=== PATIENT | female | born 1970 | race Caucasian/White ===

== ENCOUNTER 2023-09-20 16:40 | Emergency (ER) | payer MEDICAID, SELFPAY ==
[2023-09-20 16:52] VITALS: BP 138/76; PULSE 81; RESP 20; TEMP 36.7; O2SAT 99; BMI 28.7
--- NOTE | 2023-09-20 17:13 | ED.URI1 ---
HPI - URI/Sore Throat General Chief Complaint: Upper Respiratory Infection Stated Complaint: congestion Time Seen by Provider: 09/20/23 17:05 Source: patient Limitations: no limitations History of Present Illness HPI Narrative: patient is a 53-year-old female presents to the Emergency Room with concerns of right ear pain. Patient notes discomfort in her right ear and right sinus over the past twenty-four hours. Patient states she has been sick for two weeks with cough and congestion. Denies fever. States multiple family members with upper respiratory symptoms over the past few weeks. She denies any vomiting or diarrhea. Notes slight eyelid irritation and swelling as well. She denies any eye pain. 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 She did not take any Tylenol or Motrin prior to arrival but did wear cotton in her right ear last night to sleep. MD elicited complaint: Reports cough; Denies fever Onset (ago): week(s) Consistency: Reports constant Severity: moderate Able to tolerate fluids by mouth: Yes Context: Reports sick contacts Associated symptoms: Reports nasal congestion; Denies fever Related Data Previous Rx's Medication Instructions Recorded amoxicillin 875 mg tablet 875 mg PO BID 10 days #20 tabs 09/20/23 ibuprofen 600 mg tablet 600 mg PO TID PRN pain #30 tabs 09/20/23 Allergies Allergy/AdvReac Type Severity Reaction Status Date / Time No Known Drug Allergies Allergy Verified 09/20/23 16:55 Review of Systems ROS Constitutional Denies: fever or chills Eyes Denies: change in vision Ears, nose, mouth, and throat Reports: ear pain and nasal congestion; Denies: throat pain or neck pain Cardiovascular Denies: chest pain or palpitations Respiratory Reports: cough; Denies: shortness of breath Gastrointestinal Denies: abdominal pain or nausea Genitourinary Reports: other (denies chance of ); Denies: painful urination Musculoskeletal Denies: back pain, neck pain or muscle weakness Integumentary/Breast Denies: rash Neurological Denies: headache Psychiatric Denies: anxiety Allergic/Immunologic Denies: hives PFSH PFSH Social History Smoking status: Current every day smoker Exam Narrative Exam Narrative: Nurses notes and vital signs reviewed and patient is not hypoxic. General: The patient appears well and in no apparent distress. Patient is resting comfortably on cart. Skin: Warm, dry, no pallor noted. Head: Normocephalic, atraumatic Neck: Supple, trachea mid-line, no tenderness, no lymphadenopathy Eye: Pupils are equal, round and reactive to light, EOMI, no erythema trace swelling of upper and lower lids. Ears, Nose, Mouth, and Throat: mild cerumen left canal, tympanic membrane unremarkable, right tympanic membrane notably injected, bulging with middle ear effusion. Positive right sinus tenderness. oral mucosa is moist, no posterior oropharynx erythema or hypertrophy, uvula is mid-line. no dentition in the upper palate. Cardiovascular: Regular Rate and Rhythm Respiratory: Patient is in no distress, no accessory muscle use, lungs are clear to auscultation, no wheezing, rales or rhonchi. Chest Wall: no tenderness Neurological: A&O x4 Psychiatric: Cooperative Constitutional Vital Signs, click to edit/add: Last Vital Signs Temp 98.1 F 09/20/23 16:52 Pulse 81 09/20/23 16:52 Resp 20 09/20/23 16:52 BP 138/76 09/20/23 16:52 Pulse Ox 99 09/20/23 16:52 O2 Del Method Room Air 09/20/23 16:52 Course Vital Signs Vital signs: Vital Signs Temperature 98.1 F 09/20/23 16:52 Pulse Rate 81 09/20/23 16:52 Respiratory Rate 20 09/20/23 16:52 Blood Pressure 138/76 09/20/23 16:52 Pulse Oximetry 99 09/20/23 16:52 Oxygen Delivery Method Room Air 09/20/23 16:52 Temperature 98.1 F 09/20/23 16:52 Pulse Rate 81 09/20/23 16:52 Respiratory Rate 20 09/20/23 16:52 Blood Pressure 138/76 09/20/23 16:52 Pulse Oximetry 99 09/20/23 16:52 Oxygen Delivery Method Room Air 09/20/23 16:52 MDM - URI/Sore Throat MDM Narrative Medical decision making narrative: patient smokes, encouraged not to do so. Progressive upper respiratory infection symptoms over the past two weeks. She declines the need for bitter influenza screening. Patient she is concerned his right maxillary sinus pain and right ear pain. Patient feels the pain is radiating to her face from her ear. She is agreeable to Motrin here for pain, we will place her on amoxicillin as she has not been on antibiotics in recent months. recommend [id number] antihistamine such as Zyrtec or Claritin with minimal swelling of her eyelids, no conjunctival injection. Cool compresses encouraged. The patient is to followup with primary care physician in next 2-3 days or to return to the emergency department should any of the signs or symptoms worsen or new symptoms develop. Patient had questions answered. The patient agrees with the following Diagnosis and Treatment plan and the patient will be discharged home. Discharge Plan Discharge Chief Complaint: Upper Respiratory Infection Clinical Impression: Acute otitis media, right, Upper respiratory infection Patient Disposition: Home, Self-Care Time of Disposition Decision: 17:14 Condition: Good Prescriptions / Home Meds: New amoxicillin 875 mg tablet 875 mg PO BID 10 Days Qty: 20 0RF ibuprofen 600 mg tablet 600 mg PO TID PRN (Reason: pain) Qty: 30 0RF Instructions: Ear Infection (ED) Additional Instructions: Recommend antihistamine ALLERGY tablet such as Zyrtec or Claritin Cool compress to eyes. Stand Alone Forms: Portal Instructions Referrals: SALAS VALDEZ [Primary Care Provider] - 1 week
== END 2023-09-20 17:20 | disposition home or self-care (01) ==
PROVIDERS: Emergency Provider Emergency Medicine; PCP Nurse Practitioner Family
DX: H66.91 Otitis media, unspecified, right ear (principal); J06.9 Acute upper respiratory infection, unspecified; F17.210 Nicotine dependence, cigarettes, uncomplicated
CPT/HCPCS: 99283

== ENCOUNTER 2023-10-29 17:45 | Emergency (ER) | payer MEDICAID, SELFPAY ==
[2023-10-29 17:53] VITALS: PULSE 93; RESP 16; TEMP 37.2; O2SAT 99; BMI 28.7
--- NOTE | 2023-10-29 17:58 | ED.FEMALEGU1 ---
HPI - Female Genitourinary General Chief complaint: Urogenital-Female Stated complaint: POSS BLADDER INFECTION/BLOOD IN URINE Time Seen by Provider: 10/29/23 17:49 Source: patient Mode of arrival: walk-in Limitations: no limitations History of Present Illness HPI Narrative: 53-year-old female presents for frequency and pain on urination. She believes she has a UTI. It started yesterday and was perhaps slightly worse today. No fever or vomiting. Related Data Home Medications Medication Instructions Recorded Confirmed buspirone 5 mg tablet 5 mg PO BID 10/29/23 10/29/23 dextroamphetamine-amphetamine 10 10 mg PO DAILY 10/29/23 10/29/23 mg tablet levothyroxine 125 mcg tablet 125 mcg PO DAILY 10/29/23 10/29/23 paroxetine HCl 30 mg tablet 30 mg PO DAILY 10/29/23 10/29/23 Previous Rx's Medication Instructions Recorded cephalexin 500 mg capsule 500 mg PO TID 7 days #21 caps 10/29/23 Allergies Allergy/AdvReac Type Severity Reaction Status Date / Time No Known Drug Allergies Allergy Verified 09/20/23 16:55 Review of Systems ROS Narrative A ten point review of systems is negative except as noted above. PFSH PFSH Social History Smoking status: Never smoker Exam Narrative Exam Narrative: Nurses note and vital signs reviewed and patient is not hypoxic. General: The patient appears well and in no apparent distress. Patient is resting comfortably on cart. Skin: Warm, dry, no pallor noted. There is no rash noted. Head: Normocephalic, atraumatic Eye: Normal conjunctiva, no drainage Ears, Nose, Mouth, and Throat: oral mucosa is moist. Nares patent. Cardiovascular: Regular Rate and Rhythm Respiratory: Patient is in no distress, no accessory muscle use, lungs are clear to auscultation, no wheezing, rales or rhonchi Back: non-tender, no CVA tenderness bilaterally to percussion. GI: Soft and nontender Musculoskeletal: The patient has no evidence of calf tenderness, no pitting edema, symmetrical pulses noted bilaterally Neurological: A&O, normal speech Psychiatric: Cooperative Constitutional Vital Signs, click to edit/add: Last Vital Signs Temp 99.0 F 10/29/23 17:53 Pulse 93 H 10/29/23 17:53 Resp 16 10/29/23 17:53 Pulse Ox 99 02/22/24 17:53 O2 Del Method Room Air 10/29/23 17:53 Course Vital Signs Vital signs: Vital Signs Temperature 99.0 F 10/29/23 17:53 Pulse Rate 93 H 10/29/23 17:53 Respiratory Rate 16 10/29/23 17:53 Pulse Oximetry 99 10/29/23 17:53 Oxygen Delivery Method Room Air 10/29/23 17:53 Temperature 99.0 F 10/29/23 17:53 Pulse Rate 93 H 10/29/23 17:53 Respiratory Rate 16 10/29/23 17:53 Pulse Oximetry 99 10/29/23 17:53 Oxygen Delivery Method Room Air 10/29/23 17:53 MDM - Female Genitourinary MDM Narrative Medical decision making narrative: UTI is identified and she is prescribed Keflex. Treatment diagnosis and follow-up were discussed with the patient. I have no clinical suspicion of pyelonephritis Differential Diagnosis Differential diagnosis: Likely urinary tract infection and other (Pyelonephritis) Lab Data Attestation: I reviewed the patient's lab results. Labs: Lab Results 10/29/23 Range/Units 18:30 Urine Color Lt. yellow (YELLOW) Urine Clarity Clear (CLEAR) Urine pH 6.0 (5.0-9.0) Ur Specific [place] <=1.005 A (1.005-1.025) Urine Protein Negative (NEG/TRACE) mg/dL Urine Glucose (UA) Negative (NEGATIVE) mg/dL Urine Ketones Negative (NEGATIVE) mg/dL Urine Occult Blood Large A (NEGATIVE) Urine Nitrite Positive A (NEGATIVE) Urine Bilirubin Negative (NEGATIVE) Urine Urobilinogen 0.2 (0.2-1.0) EU/dL Ur Leukocyte Esterase Moderate A (NEGATIVE) Urine RBC 2-5 A (0-2) #/HPF Urine WBC 20-50 A (NONE SEEN) #/HPF Ur Squamous Epith Cells Few A (NONE/RARE) #/LPF Urine Crystals None seen (None Seen) #/HPF Urine Bacteria Moderate A (NONE SEEN) #/HPF Urine Casts None seen (NONE SEEN) #/LPF Urine Mucus None seen (NONE SEEN) Discharge Plan Discharge Chief Complaint: Urogenital-Female Clinical Impression: Urinary tract infection Patient Disposition: Home, Self-Care Time of Disposition Decision: 18:54 Condition: Good Mode of Transportation: Private Vehicle Prescriptions / Home Meds: New cephalexin 500 mg capsule 500 mg PO TID 7 Days Qty: 21 0RF No Action buspirone 5 mg tablet 5 mg PO BID levothyroxine 125 mcg tablet 125 mcg PO DAILY paroxetine HCl 30 mg tablet 30 mg PO DAILY dextroamphetamine-amphetamine 10 mg tablet 10 mg PO DAILY Instructions: Urinary Tract Infection in Women (ED) Stand Alone Forms: Portal Instructions Referrals: SALAS VALDEZ [Primary Care Provider] - 1 week
--- OUTSIDE RECORDS SUMMARY | 2023-10-29 18:24 | XMS_ITS | CCD ---
Author Name Unknown Address [address] [place] [address] Organization [facility] Care Team Providers Care Weaving Supervisor Name Role Phone Adriana Carroll Unavailable [phone] Donya Brown Unavailable MARKER ., DR [place] Admitting Unavailable MARKER ., DR [place] Attending Unavailable ADRIANA CARROLL Primary Care Unavailab emil REESE ., MARISSA MIJARES Consulting Unavailabl e MARKER ., DR [place] Consulting Unavailable JA ENGLISH Consulting Unavailable EDUARDO CAMACHO Attending Unavailable CATRINA WOODARD Referring Unavailable CATRINA WOODARD Primary Care Unavailable Medications Current Medications Medication Drug Class(es) Dates Sig (Normalized) Sig (Original) amphetamine aspartate 2.5 mg / amphetamine sulfate 2.5 mg / dextroamphetamine saccharate 2.5 mg / dextroamphetamine sulfate 2.5 mg oral tablet (12 sources) Central Nervous System Stimulant Adderall 10 MG 1 tablet in the morning Orally Once a the morning, once in the evening Active busPIRone hydrochloride 5 mg oral tablet (1 source) Start: 08-13-2023 take 1 tablet by mouth every twelve hours busPIRone HCl 5 MG 1 tablet Orally Twice a day for 30 days Aug, Active dexamethasone 1 mg/ml / tobramycin 3 mg/ml ophthalmic suspension (2 sources) Aminoglycoside Antibacterial, Corticosteroid Start: 12-30-2021 take 1 drop(s) into the eye(s) three times daily TobraDex 0.3-0.1 % 1 drop into affected eye Ophthalmic Three times a day for 5 days Dec, Active levothyroxine sodium 0.125 mg oral tablet (12 sources) l-Thyroxine take 1 tablet by mouth every twenty-four hours Levothyroxine Sodium 125 MCG 1 tablet Orally Once a day for 90 days Active take 1 tablet by genny th every twenty-four hours Levothyroxine Sodium 125 MCG 1 tablet Orally Once a day for 90 days Active methylPREDNISolone 4 mg oral tablet (5 sources) Corticosteroid Start: 12-30-2021 methylPREDNISo lone 4 MG as directed Orally Once a day for 6 days Dec, Active Start: 03-18-2018 Medrol (Alan) 4 mg as directed Orally as directed for 6 days Mar, Not-Taking PARoxetine (15 sources) Serotonin Reuptake Inhibitor take 1 tablet by mouth once daily PARoxetine HCl 30 MG TAKE ONE TABLET BY MOUTH DAILY for 30 Not-Taking take 1 tablet by genny th once daily in the morning PARoxetine HCl 30 TAKE ONE TABLET BY GENNY TH EVERY MORNING for 30 Active tiZANidine 2 mg oral tablet (1 source) Central alpha-2 Adrenergic Agonist Start: 08-13-2023 take 1 tablet by mouth every eight hours tiZANidine HCl 2 MG 1 tablet as needed Orally Three times a day for 10 days Aug, Active Completed/Discontinued Medications Medication Drug Class(es) Dates Sig (Normalized) Sig (Original) [id number] 200 actuat albuterol 0.09 mg/actuat metered dose inhaler (3 sources) beta2-Adrenergic Agonist Start: 08-28-2015 take 2 puff(s) by inhalation every four hours as needed Albuterol Sulfate HFA 108 (90 Base) MCG/ACT 2 puffs as needed Inhalation every 4 hrs for 30 day(s) PRN Aug, Not-Taking atorvastatin 10 mg oral tablet (6 sources) HMG-CoA Reductase Inhibitor Start: 04-10-2017 take 1 tablet by mouth every twenty-four hours Atorvastatin Calcium 10 MG 1 tablet Orally Once a day for 30 day(s) January, Not-Taking cyclobenzaprine hydrochloride 10 mg oral tablet (3 sources) Muscle Relaxant Start: 03-18-2018 take 1 tablet by mouth twice daily as needed Flexeril 10mg 1 tab prn Oral bid for 20 day(s) Mar, Not-Taking ergocalciferol 1.25 mg oral capsule (3 sources) Provitamin D2 Compound Start: 02-02-2019 take 1 capsule by mouth every week Ergocalciferol 63881 UNIT 1 capsule Orally once a week for 30 day(s) January, Not-Taking 120 actuat fluticasone propionate 0.044 mg/actuat metered dose inhaler (3 sources) Corticosteroid Start: 08-28-2015 take 2 puff(s) by inhalation twice daily Flovent HFA 44 MCG/ACT 2 puffs Inhalation Twice a day for 1 month Aug, Not-Taking liothyronine sodium 0.005 mg oral tablet (3 sources) l-Triiodothyronine Start: 12-18-2014 take 1 tablet by mouth every twelve hours Cytomel 5 MCG 1 tablet on an empty stomach Orally twice a day for 30 day(s) Dec, Not-Taking Multi Vitamin/Minerals (12 sources) Multi Vitamin/Minerals Orally Not-Taking/PRN Multi Vitamin/Mi nerals Orally Active Naproxen (3 sources) Nonsteroidal Anti-inflammatory Drug take 1 tablet by mouth every twelve hours at mealtime as needed Naprosyn 500 TAKE ONE TABLET BY MOUTH WITH FOOD OR MILK EVERY 12 HOURS NEEDED AFTER DONE WITH MEDROL.DOSE ALAN for 30 Not-Taking Vitamin B Complex (12 sources) Vitamin B Comple x Orally Not-Taking/PRN Vitamin B Comple x Orally Active Vitamin D 1000 UNIT (12 sources) take 1 tablet by genny th once daily as needed Vitamin D 1000 UNIT 1 tablet Orally Once a day Not-Taking/PRN take 1 tablet by mouth once saulo y Vitamin D 1000 UNIT 1 tablet Orally Once a day Active Problems Active Problems Problem Classification Problem Date Documented Date Episodic/Chronic Anxiety disorders (2 sources) Generalized anxiety disorder; Translations: [Generalized anxiety disorder] Onset: 01-20-2022 Chronic Attention-deficit, conduct, and disruptive behavior disorders (1 source) Attention-deficit hyperactivity disorder, combined type; Translations: [Attention-deficit hyperactivity disorder, combined type] Onset: 01-20-2022 Chronic Conduction disorders (18 sources) Right bundle branch block; Translations: [Unspecified right bundle-branch block] Onset: 11-18-2021 Resolved: 11-19-2021 Chronic Disorders of lipid metabolism (12 sources) Hypercholesterolemia ; Translations: [Pure hypercholesterolemia , unspecified] Chronic E Codes: Struck by; against (1 source) Walked into wall, initial encounter; Translations: [WALKED INTO WALL INITIAL ENCOUNTER] Onset: 03-31-2023 Episodic Nutritional deficiencies (13 sources) Vitamin D deficiency; Translations: [Vitamin D deficiency, unspecified] Onset: 06-18-2021 Resolved: 06-18-2021 Chronic Other connective tissue disease (3 sources) Pain in left hand; Translations: [PAIN IN LEFT HAND] Onset: 12-03-2022 Episodic Other nervous system disorders (12 sources) Poor concentration; Translations: [Attention and concentration deficit] Chronic Other nervous system disorders (1 source) Chronic pain; Translations: [Other chronic pain] Chronic Other nutritional; endocrine; and metabolic disorders (12 sources) Overweight; Translations: [Overweight] Episodic Other upper respiratory disease (3 sources) Seasonal allergic rhinitis; Translations: [Other seasonal allergic rhinitis] Chronic Other upper respiratory disease (1 source) Other seasonal allergic rhinitis Onset: 12-30-2021 Resolved: 12-30-2021 Chronic Spondylosis; intervertebral disc disorders; other back problems (1 source) Chronic low back pain; Translations: [Lumbago with sciatica, left side] Episodic Substance-related disorders (14 sources) Smoker; Translations: [Nicotine dependence, unspecified, uncomplicated] Onset: 06-18-2021 Resolved: 06-18-2021 Chronic Superficial injury; contusion (1 source) Contusion of left hand, initial encounter; Translations: [CONTUSION LEFT HAND INITIAL ENC] Onset: 12-05-2022 Episodic Thyroid disorders (20 sources) Sarah thyroiditis; Translations: [Autoimmune thyroiditis] Onset: 06-18-2021 Resolved: 06-18-2021 Chronic Past or Other Problems Problem Classification Problem Date Documented Date Episodic/Chronic Acute posthemorrhagic anemia (1 source) Acute posthemorrhagic anemia; Translations: [Anemia due to acute blood loss D62] Onset: 1 Resolved: 1 Episodic Inflammation; infection of eye (except that caused by tuberculosis or sexually transmitteddisease) (1 source) Unspecified acute conjunctivitis, bilateral Onset: 2 Resolved: 2 Episodic Other screening for suspected conditions (not mental disorders or infectious disease) (2 sources) Encounter for screening for lipoid disorders; Translations: [Abnormal electrocardiogram [ECG] [EKG]] Onset: 1 Resolved: 2 Episodic Results Test Name Value Interpretation Reference Range Facility XR HAND LT MIN 3Von 12-05-19 23 XR HAND LT MIN 3V XR HAND LT MIN 3V: HISTORY: Pain. COMPARISON: None available. TECHNIQUE: 3 radiographic view(s) obtained. FINDINGS: BONES/JOINT SPACES: There is no acute fracture or dislocation. Joint spaces appear normal. There is mild ulnar minus variance. SOFT TISSUES: Normal. IMPRESSION: 1. No acute osseous abnormality. 2. Ulnar minus variance. Electronically authenticated by: JA ENGLISH Date: 2022-12-03 22:28 Normal [facility] Provider Orderson 11-20-2021 Provider Orders [id number] [email or web address] 10-24-2021 Legal Documents [id number] [facility] Coding Summaryon 09-25-2021 Coding Summary HTMLBase 64 EzqsmaiwMVv1hAk+PGhl YWQ+DM4WYAQbJ50ihHRh uJ2PA6fRLH8IVKBFWHKV NF6SOI0irXV2SBjjY4Fa biAv RinedHXsNR89SOu6TUO4 sOcsNPqdtA8zmHWrB5i8 OyBzGF13hT73JLrcIDKe FwS4YfXltlyxmYZo P7afLbIurLVbCyy+PHRh YmxlIHdpZHRoPScxMDAl OmPlnFpdBO6mJv0aAPJf LWNvbGxhcHNlOiBj o9odENKlGCiiNT4flGol E5XanOV9KAFga1v4Ic16 dHI+NQIrSMJ2uEfbNLyh e215DoMpl9vyKLV1 oBZcCMfsOBF3L73wh8Y1 DQPbUERuXZC1lOZ1iT7l xEknmwznZ8MfiQGkQwZ4 BVN9mXMyqT4uzXzk igrkbR5iRnm+R53CSJ8I ROQDWM2JRip6O6VsRvnm dHI+MW34SBYpUX07rXMn bGOct9sjuPx9UcQj FPAxELU4cWqrNGwfg1Wp SPAhC67adKSmm5B7DGQf aFpogMQjZtXukLT0gA8l EGcpwxfzn5hkmcol Ooqsu7ckxu97pI78A47o UCgrCKDeXYP5NIQwIRRs uYpeqm5usX3iJx2+IDxj u4qei3xdmAk0GrZw MDMotmEeyDcgHOD7g3Nn Dq01I2SwhDqwc1XpLdv2 fj61sNOlm1M8qUO5NEng XRTxnX2lJYmsKkD8 PYBrBbSlqA27bULkUMse Rt3rlElwiAqcGQ8gELCb htglRXHwnB0uEENglDJf mJiyGM2qMPDcxkhu n606QhUyUID0FUDsgMQw C5UcwP1tWuQtWKUrEXIo P3YdgJNsMXhjI636NEwf JlM0HTNxphHqK7Ec RSYymIbvBwH0w2H8Pq7H t0CufndbOWQ8XEazMEWg GxA5ZrNjXwR1O8UhNez0 BKOakNkaEE5jJ7Dy FWVmmcuoxjowlOW5XEMq SDGtuY88xJYkVRrfXx2w v2N6t162APJkGUJtxL62 Oo1hsAqtRDPgqYPN mF4vmjvsw8kcusjeJtSe HXWmWCg7YYc3FJRapDdk CqGvRIT6SrY7KPG7rZWr wO7gcKenqhzyiD3b Oyc+O62trF1iXLV7MIV4 kavjKUVhetHtRQ81RV87 A1SpQvkwjLIynLK+PGRp qbQqeVvbGZ8hLkZv b6oev6QaRFzhF9InRIZh AZwnGko9SDYhQFZ7zEO8 hT3hIUOwPCwzf9U5uCN2 S6DjffNjhy6rn0ya AHOqJDnkN87vcVZcy1F4 SVXmgNZ1CCFgyCccZnLj pI36Umm+ZHWrvJgma5Op Xklpe7nrs6bmpPb5 IjMwJSIgdmFsaWduPSJ0 w2BaMw28F76oNZwoGVVj IYRxUVThXWSfjZilpd7p tD4wIg9+PGNvbCB3 vML9jR3nCNLpVdC0LCoe Z241XoQzwUTnXkwwp8lu b4uuzQq5PbHlXPJqlcHq wRcbFBK2q9GrHb80 N24wGNlaZJXvRCCqRETk ZUEelRqjmk1rdW8yKf8+ NI4ly3jimc20bW46zIC+ YHFuSAC0yJenSGyj IFZasC8gYNqkOzO4BWIk PbWfiO60uAYyXPocAd8s jImycBqxFX4kBNGmnjdb f555KxQld6yoYZQr xICpLFcaHOF3K09dc9W4 WLIxGLEgOJF6aCJ9yP4l bGlnbjogbGVmdDsgdmVy wXjkOUjuYAzvI700 IHRvcDsnPlBhdGllbnQg BlXuYJg4E4YwMht2JOTp sKplCQ6pdCCwQOneNh7l iPwdbYdxCO6bSBFc xhago166PxQjg8eaOXXw tACyACubSNP4N49dc6I1 LTVkHLTlYPE7tPW2iS8c bGlnbjogbGVmdDsg bjRkfRlbTQolBJxgL293 IHRvcDsnPkJpcnRoIERh nPZ3LT77PY92tHSjx9A3 kIB2R3YlXZMwykus rvnynKJ2TDSjTRWvfG30 Ym3geNftUe6cFMUaIQR8 BORhhNPmF6NkaW8yMvOs CLFsEXPnU2JdsGOx NBxzB726KAwvOmM6ZTHq vzGxI7MbARStuZdoEzL7 l5U8Dj9QC5K0OH70IS38 jBTsh4U8dDB1J6Jv ODUmwvtoblswkCT0HWBe HOCcsC51Jq3auJdfUp3i HPHaRWA6IZLxsQHpI9Jh fX6wFfIlYCAzVXSx P7EbmYEzGVkkY415ORhn RbN0HTWacjJwF9FmZRBm jKtxWrF4x7B4Hn0SJZi1 CL59LH90lMNta8F9 tFE5G0RmRBRrpkifledm jGT0PMEoUJGzdK63Kb0c cTiaTo6nSVBnVWG6IHLk xXFhX8QzcK6rOkOv NFVdTLKuE6WooKDlMKgt J335BGmxSxY8BMOwlnQd Y0ItZWFwvNggAxM8f2Q4 Hu0IUSQyZA04JNS4 hEM4CE55KC40N9EvDymq dGFibGU+PHRhYmxlIHdp ZHRoPScxMDAlJyBzdHls OL9jIu9qFDYaQOVw lNkkyCUdOtKyw1osEYSh KSccAU2jnTgzU0AoiVV1 NSByl8s6Kp85Z79uG1Jl dXA+QGCkpIW5aCZ3 aZ1bAtPcPiF2WYsbF744 WvAgoNTeYsjor5qlk0ep rDz5UfI4IUHfirXxoPni LCH4r8OoGb05M54c IHdpZHRoPSIxNSUiIHZh lSnjgq4evM4vTo4+PGNv sFV4dZN7fY1xWgYcXeG3 IYgeQ151KlGneOTj Jlonf3lrk7cnmEz6OpNb ZFRdrpFpcVelYZF6n0Km Yb61G9WbwEnpj4JpPcu3 cs64rDMff7Q4uZE9 E3SuJAOhyzwfsQKofIkm KY7bVZKthwxqBGFexE4t WLWdS0t6LiViDwU2TQak B6SatlR6OFCdhUWx LGhpXDN2G72fb3M4PGGw BFNwFDN9lJX7mS0tfAda bjogbGVmdDsgdmVydGlj WLoiQYebX822CCNk qJweIDTplQ8hVLJwhHMp sEmlZT8kHFQqpyvwDlfZ WgOlTT1HCclRGsBYOXa7 O5ClNas8LLEjrZaw WB3lmRTfNJfeLx8zdJud mHcxIT8mTDCoijnwDPYt uQ2lXFWsfNEzmArlRQ4v SIVimnmpi918BhSd JDS8AGPhsWVoP4XzxZ7t VfXuFYCzLOQuG8OtrCKy XSgvR761QTcfIdP6PRJp epMjB4WzLQNkdZyx YmZ7v3T2Tb9vAi4iKe5o UPqmKH33TM25oRPaw9A3 tWZ7O6GiHZTiiswybbog pJS3WHRuOLNoiI89 tLBsYCtwBm1fp7K4t225 FBPnJMLuwY38As1niSmt VYUatGQEmI0xcykyd3nu cjogIzAwMDAwMDt0 YYk0KFKgyLeuFtQnMXS1 FhI1BIQ0kVVjlP6emFms lelmyO2xMtl+NDkgWWVh eaH9C0CeLlp5IANz bMpqIG2mvCTjCQuaDf8q uZbcvIysFI4rJWPepaez QWRbcS3dNSZpiWKnyUem EV5pJBAtikwdo549 EiEnGUM3IGYpcICdQ7Fx xZ6wGbXcVQSdRCDhX2Dm cSQmUNhqV530ZGljWuQ1 GTOjcmFgO7VmLQIm sAdrKyI6r9G7Qe9OXZ8N GDX0B9PwJig7MIAhwChs SY7vaZGmIYibPu7ngMqu zCquQH2sDKYwbnla DGDwfG8mIUAbrTYouLnz HX8dUABrkkesh642KpLy RDY8ZEOetPGkE1SyqT6g KnMdFVFfOWNvU9Ts jVFbNMfjN883YDbbFiU1 UVHzyrLqS0KqGIIcgZdw ZrJ2x4R2Zu7CWAchwUZ+ LU21gn52V3ZiMepv Oqx5AMMgUAM3xDY6vU4b LBEfILpsq0R9sFY3P0Oc noCoof1jl1xoAKAqVHrx Z89xyGOla9O6SHMn qJP6XTMgxMjxQuNvqN14 Oyc+JRWpcLohs2XqRoue n3juy4ynhCb1ZbIlIMBn boCccCmwFCX3q0Bp Tk43O24yFHdxOZWyOIPp IORpCARbkEovch2lzQ7c Ii8+AVGciUD9oHC4vJ9x LtRtPmV8ZMskE060 YrKwgKRyCrqks7owc4af tQq4AmMlQNCuynKmpRfx CDK0d4WpWv68R6EiaUjp j2GmPgb6kk57vKNr s1D1pAY4U3YrOFXzdxia lGNkiQtcPZ3dSJMsryti OXHffI1oZQDyP0q3AeNc DxI0YWpgF2IgepD7 QSNxwCXnDRVuxIZGjU9e ekkdz8dvjenqJyIvUPCu BJx2CUm4WEFsoJkqBvBm IAN9WoM9MIS0yOBd cU5tnEwmntbpdA6mZug+ KPi6d7kcnITbHS3srOF8 ET81AL83fYIyz5Q6rYA1 M4YfCMBtrhilcwip xFC8BVTuGRXgyZ58Rc3e eJvrKv5eCSUtHLB3QAYb lGObG1FsbR8rBfPrXURf AXOoA4LasYVyNHlg O866PBifNpZ8QNXwgxTd T1BqDXTryOmwVhX9r1E9 Cn3HDU57QV01AU17aMJf r6N7rAV1O3MuWLHy qtvgalujdCM5AALoFVAa eN12Zi8ydWunDq9lWRCr KOY1AZHhcUEpE2YumI9q CcUbWTXwEESoV2Om qFCfBAkjV389EKxpJcR6 UXVsgrXdK4StYWHqiFdt WlW8k8M7Cs0LMn44JW36 TL09sKZux5E6nAE8 E7ZrHDVlukywfcyxxJH0 CGUoYVSymP44Pq6rmQny Ul4qGSCiYKE0VRGscGEr S4UejU2cLkBoTQWd DUIzY7KkkSNfCFtqP547 WSuwNmN2OLXypuPkI7Ew LYLunJvkNmP5l8F3Lz0V YZcomkg2P0OiOphg dHI+XT20SSTwIR98mVKc mYLwk4skjHd5BjYvIBMb DXX6vVzsZIrub2XjKAEb N68pcODsf4H5FYAn bGx (more content not included)... Normal [facility] ED Clinical Summaryon 2021 ED Clinical Summary [facility] ? Urgent Care [address] [place], [place] [id number] Clinical Summary PERSON INFORMATION Name: BERTA ROMEO Age: 51 Years Sex: FEMALE : 1970 MRN: Acct#: Visit Reason: UC - Dental Pain; UC - Dental Pain; DENTAL/ CHIN PAIN Arrival: 09/12/2021 15:41:47 Discharge: 09/12/2021 16:46:00 LOS: 000 01:05 Check In: 09/12/2021 15:41:47 Checkout: 09/12/2021 16:46:00 Address: [address] [place] [id number] PCP: SMITA POLLOCK PROVIDER INFORMATION Provider Role Assigned Unassigned Coleen Moore ED Nurse 09/12/2021 15:45:37 Harley Sheppard ED PA 09/12/2021 15:47:56 VITALS INFORMATION Vital Sign Triage Latest Temperature Tympanic Temperature Temporal Artery Pulse Rate O2 Sat Respiratory Rate Blood Pressure /60 mmHg /60 mmHg MEDICAL INFORMATION Medications Given: Allergy Information: No known allergies PHYSICIAN DOCUMENTATION DISCHARGE INFORMATION: Discharge Disposition: Home Discharge Location: Home PATIENT EDUCATION INFORMATION Instructions: Dental Abscess, Tuug-hj-Yebe Follow-Up: With: Address: When: SMITA MARIS [address] [place] [address] Zurff (1) Comments: Begin on the clindamycin 1 tab every 8 hours until gone Alternate Motrin and Tylenol as needed for any pain or discomfort Call to schedule a follow up with your dentist DIAGNOSIS: Dental abscess; Left facial swelling; Pain, dental Patient Understands: Yes - Patient/family/careg iver verbalizes understanding of instructions given Comment: Normal [facility] ED Patient Summaryon 022 ED Patient Summary [facility] ? Urgent Care [address] [place] [id number] PATIENT DISCHARGE INSTRUCTIONS Patient Information Name: BERTA ROMEO Age: 51 Years Date of : 1970 Reason For Visit: UC - Dental Pain; UC - Dental Pain; DENTAL/ CHIN PAIN Arrival Time: 09/12/2021 15:41:47 Primary Care Physician: SMITA POLLOCK Attending Physician: Harley Sheppard Comment: Patient Education With: Address: When: SMITA MARIS [address] [place] [id number] Zurff (1) Comments: Begin on the clindamycin 1 tab every 8 hours until gone Alternate Motrin and Tylenol as needed for any pain or discomfort Call to schedule a follow up with your dentist Dental Abscess A dental abscess is an area of pus in or around a tooth. It comes from an infection. It can cause pain and other symptoms. Treatment will help with symptoms and prevent the infection from spreading. Follow these instructions at home: Medicines ? Take mzsd-dsb-kdprobw and prescription medicines only as told by your dentist. ? If you were prescribed an antibiotic medicine, take it as told by your dentist. Do not stop taking it even if you start to feel better. ? If you were prescribed a gel that has numbing medicine in it, use it exactly as told. ? Do not drive or use heavy machinery (like a supply chain generalist) while taking prescription pain medicine. General instructions ? Rinse out your mouth often with salt water. ? To make salt water, dissolve ??1 tsp of salt in 1 cup of warm water. ? Eat a soft diet while your mouth is healing. ? Drink enough fluid to keep your urine pale yellow. ? Do not apply heat to the outside of your mouth. ? Do not use any products that contain nicotine or tobacco. These include cigarettes and e-cigarettes. If you need help quitting, ask your doctor. ? Keep all follow-up visits as told by your dentist. This is important. Prevent an abscess ? [place] your teeth every morning and every night. Use fluoride toothpaste. ? Floss your teeth each day. ? Get dental cleanings as often as told by your dentist. ? Think about getting dental sealant put on teeth that have deep holes (decay). ? Drink water that has fluoride in it. ? Most tap water has fluoride. ? Check the label on bottled water to see if it has fluoride in it. ? Drink water instead of sugary drinks. ? Eat healthy meals and snacks. ? Wear a mouth guard or face shield when you play sports. Contact a doctor if: ? Your pain is worse, and medicine does not help. Get help right away if: ? You have a fever or chills. ? Your symptoms suddenly get worse. ? You have a very bad headache. ? You have problems breathing or swallowing. ? You have trouble opening your mouth. ? You have swelling in your neck or close to your eye. Summary ? A dental abscess is an area of pus in or around a tooth. It is caused by an infection. ? Treatment will help with symptoms and prevent the infection from spreading. ? Take xzkh-aye-rpqgnec and prescription medicines only as told by your dentist. ? To prevent an abscess, take good care of your teeth. [place] your teeth every morning and night. Use floss every day. ? Get dental cleanings as often as told by your dentist. This information is not intended to replace advice given to you by your health care provider. Make sure you discuss any questions you have with your health care provider. Document Revised: 12/14/2019 Document Reviewed: 04/26/2018 [employer] Patient Education ? 2019 [employer]. Medication Information: The exam and treatment you received today in the [facility] Emergency Department were for an urgent problem and are not intended as complete care. It is important for you to follow up with a doctor, nurse practitioner, or physician?s medical library assistant for ongoing care. If your symptoms become worse or you do not improve as expected and you are unable to reach your usual health care provider, you should return to the Emergency Department, we are available 24 hours a day. For those patients who have received Radiology results, the interpretation of your X-ray as given to you by our Emergency Department physician is only a preliminary report. The Radiologist will review your films and if there is a change in the diagnosis you will be notified by phone. Please make sure you have provided a working phone number so we can reach you if necessary. In the event that you had a lab culture while you were a patient in the Emergency Department, you will be notified by phone if there is a need to change your antibiotic. Please make sure you have provided a working phone number so we can reach you if necessary. [facility] Emergency Department has provided you with a complete list of medications post discharge. Please inform your patch worker/provider of your visit and for further instruction on these medications. Any specific quest (more content not included)... Normal [facility] Urgent Care Note- Provideron 09-12-2021 Urgent Care Note- Provider Patient: BERTA ROMEO Age: 51 years Sex: FEMALE : 1970 Associated Diagnoses: Pain, dental; Dental abscess; Left facial swelling Author: Harley Sheppard Basic Information Time seen: Date & time 09/12/2021 15:54:00. History source: Patient. History limitation: None. History of Present Illness Patient is a 51-year-old female complaint of left-sided dental pain and swelling. Patient has had same in the past. States was unable to get in to her dentist the previous time this happened for her. She has no other complaints or concerns. No known medication allergies. Review of Systems Constitutional symptoms: Negative except as documented in HPI. ENMT symptoms: Negative except as documented in HPI. Additional review of systems information: All other systems reviewed and otherwise negative. Health Status Allergies: Allergic Reactions (Selected) No known allergies. Medications: (Selected) Prescriptions Prescribed Peridex 0.12% mucous membrane liquid: 0.018 gm = 15 mL, PO, BID, for 10 day(s), (swish and spit; do not swallow), 473 mL, 0 Refill(s) clindamycin 300 mg oral capsule: 300 mg = 1 cap(s), PO, TID, for 10 day(s), 30 cap(s), 0 Refill(s) Documented Medications Documented Adderall 5 mg oral tablet: 10 mg = 2 tab(s), PO, BID, 0 Refill(s) Cytomel 5 mcg oral tablet: 5 mcg = 1 tab(s), PO, Daily, 0 Refill(s) Lipitor 10 mg oral tablet: 10 mg = 1 tab(s), PO, Daily, 0 Refill(s) Synthroid 112 mcg (0.112 mg) oral tablet: 112 mcg = 1 tab(s), PO, Daily, 0 Refill(s) Vitamin D3 50,000 intl units oral capsule: 50,000 International_Unit = 1 cap(s), PO, qMonth, 12 cap(s), 0 Refill(s) ferrous sulfate 325 mg (65 mg elemental iron) oral tablet: 325 mg = 1 tab(s), PO, TID, 0 Refill(s). Past Medical/ Family/ Social History Medical history: No active or resolved past medical history items have been selected or recorded.. Surgical history: No active procedure history items have been selected or recorded.. Family history: No family history items have been selected or recorded.. Social history: Social & Psychosocial Habits Alcohol 06/14/2021 Alcohol Use: Current Frequency: 1-2 times per month Substance Abuse 06/14/2021 Substance use: Never Tobacco 03/14/2019 Smoking tobacco use: 10 or more cigarettes (06/14/2021 Smoking tobacco use: 10 or more cigarettes (1/ Electronic Cigarette/Vaping 06/14/2021 Electronic Cigarette Use: Never . Problem list: Active Problems (3) ADHD Hypothyroidism Smoker . Physical Examination Vital Signs Vital Signs 09/12/2021 16:00 EST Temperature Oral 36.8 DegC Peripheral Pulse Rate 72 bpm Respiratory Rate 16 br/min Systolic Blood Pressure 114 mmHg Diastolic Blood Pressure 60 mmHg . General: Alert, no acute distress. Skin: Warm, dry. Head: Normocephalic, atraumatic. Ears, nose, mouth and throat: Subtle left-sided facial swelling, I am able to palpate a abscess to the left lower jaw that is not visible within the oropharynx,. Cardiovascular: Regular rate and rhythm. Respiratory: Lungs are clear to auscultation, respirations are non-labored, breath sounds are equal, Symmetrical chest wall expansion. Back: Normal range of motion. Musculoskeletal: Normal ROM. Psychiatric: Cooperative, appropriate mood & affect. Medical Decision Making Differential Diagnosis: Dental pain, dental carries. Patient with subtle left-sided facial swelling and able to palpate a abscess of the left lower jaw that is not visible within the oropharynx. Poor dentition throughout. Patient treated with clindamycin. Patient in agreement with treatment plan. Patient states understanding of information. Impression and Plan Diagnosis Pain, dental ([id number] K08.89, Discharge, Medical) Dental abscess (OMJ50-PB K04.7, Discharge, Medical) Left facial swelling (EKH19-TF R22.0, Discharge, Medical) Plan Prescriptions: Launch prescriptions Pharmacy: clindamycin 300 mg oral capsule (Prescribe): 300 mg = 1 cap(s), PO, TID, for 10 day(s), 30 cap(s), 0 Refill(s). Patient was given the following educational materials: Dental Abscess, Cmnt-du-Eeay. Follow up with: SMITA POLLOCK Begin on the clindamycin 1 tab every 8 hours until gone Alternate Motrin and Tylenol as needed for any pain or discomfort Call to schedule a follow up with your dentist . Counseled: Patient, Regarding diagnosis, Regarding diagnostic results, Regarding treatment plan, Regarding prescription, Patient indicated understanding of instructions. Normal [facility] Recordon 022 Urgent Care Record [facility] ? Urgent Care [address] [place], [place] [id number] PATIENT DISCHARGE INSTRUCTIONS Patient Information Name: BERTA ROMEO Age: 51 Years Date of : 1970 Reason For Visit: UC - Dental Pain; UC - Dental Pain; DENTAL/ CHIN PAIN Arrival Time: 09/12/2021 15:41:47 Primary Care Physician: SMITA POLLOCK Attending Physician: Harley Sheppard Comment: Visit Diagnosis: Diagnoses This Visit Dental abscess (K04.7) Left facial swelling (R22.0) Pain, dental (K08.89) UC - Dental Pain ([id number]) UC - Dental Pain ([id number]) If you received any narcotics, sedation, or any other medication that causes drowsiness for the next 24 hours, unless otherwise directed: ? Do not drive a car. ? Do not operate machinery such as power tools, lawn mowers, drills, sewing machines, or stoves ? Avoid alcoholic beverages and drugs for allergies, nerves, or sleep ? Do not make important personal or business decisions or sign any legal documents With: Address: When: SMITA POLLOCK [address] [place] [address] Business (1) Comments: Begin on the clindamycin 1 tab every 8 hours until gone Alternate Motrin and Tylenol as needed for any pain or discomfort Call to schedule a follow up with your dentist Medication Information: The exam and treatment you received today in the [facility] were for an urgent problem and are not intended as complete care. It is important for you to follow up with a doctor, nurse practitioner, or physician?s medical library assistant for ongoing care. If your symptoms become worse or you do not improve as expected and you are unable to reach your usual health care provider, you should return to the Emergency Department, we are available 24 hours a day. For those patients who have received Radiology results, the interpretation of your X-ray as given to you by our Urgent Care physician is only a preliminary report. The Radiologist will review your films and if there is a change in the diagnosis you will be notified by phone. Please make sure you have provided a working phone number so we can reach you if necessary. In the event that you had a lab culture while you were a patient in the Urgent Care, you will be notified by phone if there is a need to change your antibiotic. Please make sure you have provided a working phone number so we can reach you if necessary. [facility] has provided you with a complete list of medications post discharge. Please inform your patch worker/provider of your visit and for further instruction on these medications. Any specific questions regarding your chronic medications and dosages should be discussed with your primary care physician(s) and/or pharmacist. New Medications [facility], [address] [place] [phone], [phone] clindamycin (clindamycin 300 mg oral capsule) 1 cap(s) Oral 3 times a day for 10 Days. Refills: 0. Additional medications on your home medication list not specifically addressed. Please contact the ordering physician if you have questions about these medications. amphetamine-dextroam phetamine (Adderall 5 mg oral tablet) 2 tab(s) Oral 2 times a day. atorvastatin (Lipitor 10 mg oral tablet) 1 tab(s) Oral every day. cholecalciferol (Vitamin D3 50,000 intl units oral capsule) 1 cap(s) Oral once a month. ferrous sulfate (ferrous sulfate 325 mg (65 mg elemental iron) oral tablet) 1 tab(s) Oral 3 times a day. levothyroxine (Synthroid 112 mcg (0.112 mg) oral tablet) 1 tab(s) Oral every day. liothyronine (Cytomel 5 mcg oral tablet) 1 tab(s) Oral every day. Visit Information Allergies: Substance Reaction Symptoms Type Comments No known allergies Drug Vital Signs: Vitals and Measurements this Visit (last charted value for your 09/12/2021 visit) Vital Signs This Visit Temperature Oral: 36.8 DegC Peripheral Pulse Rate: 72 bpm Respiratory Rate: 16 br/min Systolic Blood Pressure: 114 mmHg Diastolic Blood Pressure: 60 mmHg Problems List: Problem Onset Comments ADHD Hypothyroidism Smoker Added secondary to documentation in Social History. Patient Education Dental Abscess A dental abscess is an area of pus in or around a tooth. It comes from an infection. It can cause pain and other symptoms. Treatment will help with symptoms and prevent the infection from spreading. Follow these instructions at home: Medicines ? Take capx-klx-cqjkhxf and prescription medicines only as told by your dentist. ? If you were prescribed an antibiotic medicine, take it as told by your dentist. Do not stop taking it even if you start to feel better. ? If you were prescribed a gel that has numbing medicine in it, use it exactly as told. ? Do not drive or use heavy machinery (like a supply chain generalist) while taking prescription pain medici (more content not included)... [facility] Coding Summaryon 07-08-2021 Coding Summary HTMLBase 64 PeglwgkvJBp1lVm+PGhl YWQ+CK8ZLNWnL38glSFq zX6PW7dOAS9QICHBWTAZ ZN7JOU7tdQO2HKdfE2Uq biAv OrckiRVvWQ37OHn1KSS4 sYgpYYggmF8rsJNmD4w8 BbKbYJ51hS83JLyqKTRe PtS5LyDwbajjpADp Z6miDfQcvRWiOqz+PHRh YmxlIHdpZHRoPScxMDAl IeJmuRvxKK6oXo2tCBHc LWNvbGxhcHNlOiBj v2siTFBzMEhtZE1peDsh Z4EqzVB1CIRky4l1Nh31 dHI+CGMdGIP1rSciFNwt x342NfJqn1shCNI2 nNSuKYfnRPY1R88nt8I9 MNXzXMXaDFT7wBD1bA8y iLrttiobZ1ZziHQmPpV9 VSZ3eDHmaL7kgHge rhxhmS0mPsc+M19TZQ6R RMTKFI6FWip4H6NaIcpo dHI+UM94RVCxTC64wLJb qYQui2wixFt8RePb EVDlMMG7bFveQEkni5Hu ZZCtT73zkVFvn6P1VXXy rElniMLyLiWxtUT9hY9j JMiywutqq4snolmg Iclba9imap96eA85U75l XDerFMShUFZ0CPAeOLDl aZxowe4rtW4wWb7+IDxj x5zlw7tmiMz1CpMz BBRnudDveGekPRX2c2Cm Bd58B7ZdcPcqd0LwBzs0 ty25xZXjt1D9zTT0VCie YITiaJ2mRRwvEaP8 AFUtSiDwjD71vOLtKWrv Qj5hkQubdNcbZQ5oMTJh ohgbGAJkgK4dBBDqcUGf yScjMI9zWWZkyetj v230YkDgAOO2CJGirMPz S7QknJ1wDwXkLWPeOIHk O6PviWOcICmkX617HPzl OnU9LSCajrZzQ0Fm SRTssXqdAsW5n6E4Ng3M s7QldanpDEV7JMyhSGJp BjYzZdCvCxX8Y2OeLms9 ANPucXibAE6vS8Ds AKXmuzuyxermgVG5VYXl UPRwzS03dJXgHOkoBp0e l1I7i939MNUrMROarK48 Sj6cdVhlWXMciGIX wD6qzypoh5ccscjeUrFq SGZwFEh5YTu5TXVytHdo BgCwAHD1DaE1ZJY7aRLp dU4qsCxyfwjscP7k Oyc+Y26lgZ2mMMQ4ZRN6 jsqoCGQtguMwIW07QD98 G0KlWygubILudRQ+PGRp dyJtsXkkMS5tNpPs b5znf4PsQQuqY1RtZCYk LEguYak3IXLvFVJ2mTX4 xK0gPZUyJQtsh4I5nKS8 L7OoeiZabo2gu6ux EZCoWBgtN59ddBDuw8Q3 LIGqePI4RYXmmGysLeJy lZ80Que+UYFfbJvha3Mw Nqcky5vbx0ryuZa6 IjMwJSIgdmFsaWduPSJ0 l7EqIj93Y79rSMawXZYv FZRiIQWvPDYsvFdscr6l yP1iNn7+PGNvbCB3 eIO3cM4uXZThMmQ1PUni M691IwMcxYSxSessg0kc l0lboDf5CnStVTTgjyWv kPpeZMV7n5YlIs58 Z37wISubXURtRLMcGESr MTMspXdcpp8pxK5pSl7+ CE8ra2aaps79bY07lQO+ ZGCiTHT6lTwyLBxx WARkxX7jQKaqOyS2IRIk FzIucH64aESuDAkyDs9d zLdmaPioTD4hPKKyqixl b408OiHho9jpAKSu cDYgPNftRXI6M47hm5R3 WEJcTLEsMQC6wIN5zF8q bGlnbjogbGVmdDsgdmVy nFlvQNlcGBhzT135 IHRvcDsnPlBhdGllbnQg XrCvAYo1Y1FeEsv3JBTj uUwfTS2rwJOkNZrkNz6a rYtwoZmmRL9eGFEj sujna704NdFij9jaYOVm eOIqHTrcPHT6P35xw7Q5 URVjCICmEJX5lPN3sH7o bGlnbjogbGVmdDsg itJdfTrtJUrrBYmzN121 IHRvcDsnPkJpcnRoIERh sWT6YV64II13yTMnp9P6 eBX0P1OzNOSkkgrb mqwynJW6KCYhSHQguI06 Um9eoEzqWi3cPUUsJSI1 TGGabGEjJ0HtgI3xDlYv YLGtEAMjU1CjtBMu DYrkK571YCszTyK9XBKi csCeW7EdKZIeeAsoZyM6 h3B5Kv1VO7Z1GL14FD37 tUHrn5L4mJO8T1Xy OIRvpueiubangKT2JEDi YJAtaE37Rw9aaZceSd7i COEcTGI5VYWwcNQxF7Ne aQ6iNpNqQHSdBHMz X9AmiWAyRWukR872QQfs ScL4UYXxsiTpB8CfRZMw mKswIhA5d0U3Ro3JFEa8 HZ46QR47zKNly0O6 wKX9O2JqPEOecogwffia nOO5QVFcGNQsmM62At4t qGyfJh2zSWGvZLS5SWSa mMWqG1UkiS4eBwGy KNHyZQYoR3VibFPsQLsy W367JPmsFyF1JUCbkpMe W2WxJANeaAuoLbY5o2X5 Nj3ZCQTcQW78PFR1 mVR5RG06CV79U7OcHige dGFibGU+PHRhYmxlIHdp ZHRoPScxMDAlJyBzdHls FD1kUe5rWFFhNQPx eUxhzWGbRaHmy7awJDXz CCbwLT1eqVnqA4DhvTM1 YUHip6q3Qo79R42qD2Uy dXA+ZFNnuQI4xXE8 yJ0tSdMpHeS1OLxoJ573 VoDtrFLcYrghs6ovw3wo zXk4GhB5LCTxrhXrjKsy BAZ1e4TiBm81I08q IHdpZHRoPSIxNSUiIHZh cMxfby1dcP8sCi0+PGNv jZY8rNC6cC3jMnHjPeL1 QCweR858TwIokVPt Htigk8xwx5ahxQr9IxRf UHDgtrVyxItaRSB1b9Lm Qy65X9GzkArhv6CoMle2 fe55hXBsg8S2eQK6 H7VoXIQyzrgroKKnwRrx ON1aBGQfkiavQRPspY9f AFOhP0k7MeBxPoW0DZyz A2XebgD6AOStoEJl YGgkQLF4Q60wv1B7PSPv AKBkETJ0wKH7zN7cvFfv bjogbGVmdDsgdmVydGlj GRiwWTfyK952JETi cEokFDEsuP8fDNFgoBIa gBxtQG0xEWWeoqjzBqvA RlOmJZ9ITojTJsEXEQb9 B9ClWfg6JFLfwWoz MT6jvLWfHKenYv8fwDee yLitZP3kADKghknoFVSq dV2dWMKseULrtMyxBJ6w XDOagmtxi810NyNf TEV0VHNbrNKqS7NhlM9c SiFnQUMcORXlZ3HvmUNn PZheV064PZirXhC0CBQg isJjT7UrPFCqoVjm KcK5n2O6Ev2qRm5zNv3o KPvxZO53KM03vPErw1G0 uOO7Z1QxQFCmdypliuwr nVH6JNUrOYIlsP39 vKBpNNfjEs0vu1G4o147 BRWnKXFxyV88Bv6hfLjr IWQesADNpH5fjvgui4wo cjogIzAwMDAwMDt0 VGd9BRQudKqlEuTkEQA2 TfD1UWV3sVUlnW6fqSuh jpkjmV0hEzl+NDkgWWVh iwO1C6PbSsz2FBSq yAfgTC5urTRmBKiaZn5v mZfcfQqpYV5fTENqgmlr KCZzkN0dLYCykIYiaKmi OP1sECPlhjjko931 LjVtIHQ8SUGtbFBxI9Pg wP6cQbGbDJWyWGHxF2Ng bSNqQLuaY722AOyyVtM6 EMSimdHoC9MkDRWc pBzmLgC8x4J7Fl2INZ6N YIG1J8JvVft9OGMopKhz RH4haNJuQKjwOz5yxLng xAwcXT3vCSPlmmyg QWOtkX5sXTRupBZslPvq KP3uMXStoress161ReUc UJH3MDPvhOUmQ9MvsQ9n ZyQaQAAkMBIrP4Le cVWbMNpiX173ZGguIxK7 TZLprmMwT8ZpFDKgdIxf TdD7u4B0Jw8WTJwpfFF+ IH34xo00Y0AuXocx Sfp9OGFuBZR8dDC3fU7b VNZuHUnxj2F6hHH0E8Sb npMyiu4bt6dvEWBwECao X69khCEtl9X4TUAu tNF9LERuuRnoRqIuiR23 Oyc+TIFleBzrd2QkOmqh s2nvk1uxsUg2BxQkIGGh vzHdbRbkBSE9y4Hc Wc79C00oJEytNMStGKNg PPRvSJRctBxark2ojS8o Ii8+VOJlaRX2oYI9uV5z XeCpFxN2LPwiN191 PaNxwQWjArisl0fvl9gb oTe0PkJwCYOecyPmtHku URI0e5DwRn64A7BppQiu q6VlTgl0qw72bUXh o7C7jKI3V8BkDUAqgzjh oDLifTybNJ6fTZMttyql LWCndE7mUGAuE9u9QfUp IiT3ZAwwC4FbghK8 EIVwqXJuXXPulBKVqL1a idmce4zjqsotAhKlWCUw UWh4DNe9UUKtuDvgKuOg AGX2IyJ0ULO5tSZi iU5mcMsrkaggeJ2kHqq+ PAr5l0yjpLIgWN5ygWV9 HT00QC62uPJfy4A5sXU4 L9AfISNjalyzmatg rWL1LPXwBFXlzD82Zy0m yUdcAd6nDADxLOS6VHCs vMEsM1FnvM3kPmUiIIJm HFRdJ4TrdRTdRNbu W809VJtrZqD8IDDymkLn C8OlPWTcnUviEeG0h0E3 Sm1YPO90ID46AJ93nLJd u1F4cAN5X8LjWAIr wrfjmhjwfLX0JCSkBKSo xV35Xa6ksAuiVt2qTOXo SLD8PCAjtBYqE5VitQ9d PpPiWTWrQGEzP3Eh wVCyPVxbC377YYcpEgH0 SGUikqSyE0WwEUUmsXpx TnQ9h0V7Bg6GRz26EH63 LL73qKAun2P2oRE7 Q9GiBHXxgmiqfinqtFH8 CRDuEGFldE40Pp0krLhf Yc8aJANdKFQ1NGDvlHUc C1CgwB6bQvVeARTg GAJkW6QgfKImNYewD555 YCdbLwJ0JNXauwQuG4Hf WVHtlExpDcR7y3G5Sl3T XJnuyfl9X7EsEmdx dHI+HR92CPIpOV38yCKz kMLwh5vzgCc3JgPgQGCy DCK1hKdfBXrog0EvFTQf D87caSKsc0E3JCNl bGx (more content not included)... Normal [facility] ED Clinical Summaryon 2020 ED Clinical Summary [facility] ? Urgent Care [address] [place] [id number] Clinical Summary PERSON INFORMATION Name: BERTA ROMEO Age: 51 Years Sex: FEMALE : 1970 MRN: Acct#: Visit Reason: UC - Dental Pain; DENTAL PAIN Arrival: 07/03/2021 15:07:49 Discharge: 07/03/2021 15:33:00 LOS: 000 00:26 Check In: 07/03/2021 15:07:49 Checkout: 07/03/2021 15:33:00 Address: [address] [place], [place] [id number] PCP: SMITA POLLOCK PROVIDER INFORMATION Provider Role Assigned Unassigned Ernesto Noland ED PA 07/03/2021 15:10:36 Juan Miguel RN, Katie ED Nurse 07/03/2021 15:15:23 VITALS INFORMATION Vital Sign Triage Latest Temperature Tympanic Temperature Temporal Artery Pulse Rate O2 Sat 98 % 98 % Respiratory Rate Blood Pressure /76 mmHg /76 mmHg MEDICAL INFORMATION Medications Given: Allergy Information: No known allergies PHYSICIAN DOCUMENTATION DISCHARGE INFORMATION: Discharge Disposition: Home Discharge Location: Home PATIENT EDUCATION INFORMATION Instructions: Dental Abscess; Dental Caries, Adult Follow-Up: With: Address: When: SMITA POLLOCK [address] [place] [address] [phone] Business (1) Within 2 to 4 days Comments: Diagnosis today is dental infection, dental pain. From evaluation you have pain and swelling in the localized area of your mouth. This is most likely an infection, we are starting on antibiotics to take as prescribed. -Begin Amoxicillin 500mg 1 every 8 hours for 10 days. -Begin Peridex mouth wash twice daily -Take Tylenol 500 mg 1-2 every 4-6 hours as needed for dental pain. - Please begin saltwater gargles. Keep appt with [facility] for next week. You may follow up with [facility] dental clinic at . You may follow up with [facility] [phone] ext: [phone]. You may also follow up with [facility] dental clinic at [phone]. You may call [facility] at [phone]. For adult dental emergencies please call [phone]. Return for worsening symptoms or concerns, spiking high fevers, redness going up or down side of face, swollen eyes, or any further questions. DIAGNOSIS: Fracture of tooth; Infected dental caries; Periapical abscess without sinus Patient Understands: Yes - Patient/family/careg iver verbalizes understanding of instructions given Comment: Normal [facility] ED Patient Summaryon 021 ED Patient Summary [facility] ? Urgent Care [address] [place] [id number] PATIENT DISCHARGE INSTRUCTIONS Patient Information Name: BERTA ROMEO Age: 51 Years Date of : 1970 Reason For Visit: UC - Dental Pain; DENTAL PAIN Arrival Time: 07/03/2021 15:07:49 Primary Care Physician: SMITA POLLOCK Attending Physician: Ernesto Noland Comment: Patient Education With: Address: When: SMITA POLLOCK [address] [place] [phone] Business (1) Within 2 to 4 days Comments: Diagnosis today is dental infection, dental pain. From evaluation you have pain and swelling in the localized area of your mouth. This is most likely an infection, we are starting on antibiotics to take as prescribed. -Begin Amoxicillin 500mg 1 every 8 hours for 10 days. -Begin Peridex mouth wash twice daily -Take Tylenol 500 mg 1-2 every 4-6 hours as needed for dental pain. - Please begin saltwater gargles. Keep appt with [facility] for next week. You may follow up with [facility] dental clinic at . You may follow up with [facility] [phone] ext: [phone]. You may also follow up with [facility] dental clinic at [phone]. You may call [facility] at [phone]. For adult dental emergencies please call [phone]. Return for worsening symptoms or concerns, spiking high fevers, redness going up or down side of face, swollen eyes, or any further questions. Dental Abscess A dental abscess is a collection of pus in or around a tooth that results from an infection. An abscess can cause pain in the affected area as well as other symptoms. Treatment is important to help with symptoms and to prevent the infection from spreading. What are the causes? This condition is caused by a bacterial infection around the root of the tooth that involves the inner part of the tooth (pulp). It may result from: ? Severe tooth decay. ? Trauma to the tooth, such as a broken or chipped tooth, that allows bacteria to enter into the pulp. ? Severe gum disease around a tooth. What increases the risk? This condition is more likely to develop in males. It is also more likely to develop in people who: ? Have dental decay (cavities). ? Eat sugary snacks between meals. ? Use tobacco products. ? Have diabetes. ? Have a weakened disease-fighting system (immune system). ? Do not brush and care for their teeth regularly. What are the signs or symptoms? Symptoms of this condition include: ? Severe pain in and around the infected tooth. ? Swelling and redness around the infected tooth, in the mouth, or in the face. ? Tenderness. ? Pus drainage. ? Bad breath. ? Bitter taste in the mouth. ? Difficulty swallowing. ? Difficulty opening the mouth. ? Nausea. ? Vomiting. ? Chills. ? Swollen neck glands. ? Fever. How is this diagnosed? This condition is diagnosed based on: ? Your symptoms and your medical and dental history. ? An examination of the infected tooth. During the exam, your dentist may tap on the infected tooth. You may also have X-rays of the affected area. How is this treated? This condition is treated by getting rid of the infection. This may be done with: ? Incision and drainage. This procedure is done by making an incision in the abscess to drain out the pus. Removing pus is the first priority in treating an abscess. ? Antibiotic medicines. These may be used in certain situations. ? Antibacterial mouth rinse. ? A root canal. This may be performed to save the tooth. Your dentist accesses the visible part of your tooth (crown) with a drill and removes any damaged pulp. Then the space is filled and sealed off. ? Tooth extraction. The tooth is pulled out if it cannot be saved by other treatment. You may also receive treatment for pain, such as: ? Acetaminophen or NSAIDs. ? Gels that contain a numbing medicine. ? An injection to block the pain near your nerve. Follow these instructions at home: Medicines ? Take lgxl-bwb-nlodris and prescription medicines only as told by your dentist. ? If you were prescribed an antibiotic, take it as told by your dentist. Do not stop taking the antibiotic even if you start to feel better. ? If you were prescribed a gel that contains a numbing medicine, use it exactly as told in the directions. Do not use these gels for children who are younger than 2 years of age. ? Do not drive or use heavy machinery while taking prescription pain medicine. General instructions ? Rinse out your mouth often with salt water to relieve pain or swelling. To make a salt-water mixture, completely dissolve ??1 tsp of salt in 1 cup of warm water. ? Eat a soft diet while your abscess is healing. ? Drink enough fluid to keep your urine pale yellow. ? Do not apply heat to the outside of your mouth. (more content not included)... Normal [facility] Urgent Care Note- Provideron 07-03-2021 Urgent Care Note- Provider Patient: BERTA ROMEO Age: 51 years Sex: FEMALE : 1970 Associated Diagnoses: Infected dental caries; Fracture of tooth Author: Ernesto Noland Basic Information Time seen: Date & time 07/03/2021 15:20:00. History source: Patient. Arrival mode: Walking. History limitation: None. Additional information: Chief Complaint from Nursing Triage Note : Chief Complaint 07/03/2021 15:22 EDT Chief Complaint Dental- per pt broken tooth with lump underneath - pain with application to site only, denies fever. Pt has dental appt 07/09 . CC: Lump under a broken tooth. Only has pain when touching area under tooth. Left lower lateral incisor broken off/black cavity. Overall very poor dentition. Soreness x 2 days. Called [facility] and has appt scheduled for next week. ALL: NKDA ROS: No fever, no chills. Review of Systems Constitutional symptoms: No fever, no chills. ENMT symptoms: No sore throat, no nasal congestion. Respiratory symptoms: No cough, Neurologic symptoms: No headache, no dizziness. Health Status Allergies: Allergic Reactions (Selected) No known allergies. Medications: (Selected) Prescriptions Prescribed Peridex 0.12% mucous membrane liquid: 0.018 gm = 15 mL, PO, BID, for 10 day(s), (swish and spit; do not swallow), 473 mL, 0 Refill(s) amoxicillin 500 mg oral tablet: 500 mg = 1 tab(s), PO, TID, for 10 day(s), 30 tab(s), 0 Refill(s) Documented Medications Documented Adderall 5 mg oral tablet: 10 mg = 2 tab(s), PO, BID, 0 Refill(s) Cytomel 5 mcg oral tablet: 5 mcg = 1 tab(s), PO, Daily, 0 Refill(s) Lipitor 10 mg oral tablet: 10 mg = 1 tab(s), PO, Daily, 0 Refill(s) Synthroid 112 mcg (0.112 mg) oral tablet: 112 mcg = 1 tab(s), PO, Daily, 0 Refill(s) Vitamin D3 50,000 intl units oral capsule: 50,000 International_Unit = 1 cap(s), PO, qMonth, 12 cap(s), 0 Refill(s) ferrous sulfate 325 mg (65 mg elemental iron) oral tablet: 325 mg = 1 tab(s), PO, TID, 0 Refill(s). Past Medical/ Family/ Social History Family history: No family history items have been selected or recorded.. Social history: Social & Psychosocial Habits Alcohol 06/14/2021 Alcohol Use: Current Frequency: 1-2 times per month Substance Abuse 06/14/2021 Substance use: Never Tobacco 03/14/2019 Smoking tobacco use: 10 or more cigarettes (06/14/2021 Smoking tobacco use: 10 or more cigarettes (1/ Electronic Cigarette/Vaping 06/14/2021 Electronic Cigarette Use: Never . Physical Examination Vital Signs Vital Signs 07/03/2021 15:22 EDT Temperature Oral 37.5 DegC HI Apical Heart Rate 87 bpm Systolic Blood Pressure 134 mmHg Diastolic Blood Pressure 76 mmHg SpO2 98 % Oxygen Therapy Room air . General: Alert, no acute distress, Not ill-appearing, Skin: Warm, dry, no rash, normal turgor. Head: Normocephalic, atraumatic. Neck: Supple, trachea midline, full range of motion. Eye: Pupils are equal, round and reactive to light, extraocular movements are intact. Ears, nose, mouth and throat: Mouth: moist, Tooth: Left, lower, # 23, lateral incisor, dental caries, fracture, Throat: Normal. Cardiovascular: Regular rate and rhythm, No murmur. Respiratory: Lungs are clear to auscultation, respirations are non-labored, breath sounds are equal. Gastrointestinal: Soft, Nontender, Non distended, Normal bowel sounds. Musculoskeletal: Normal ROM, normal strength. Neurological: Alert and oriented to person, place, time, and situation, No focal neurological deficit observed, CN II-XII intact. Psychiatric: Cooperative, appropriate mood & affect. Medical Decision Making Differential Diagnosis: Dental pain, dental carries, tooth fracture, dental abscess, not tooth avulsion. Rationale: Tooth #23 with fracture, dental caries present. There is a dental abscess, early infection at the gumline causing pain to palpation but not constant pain. Begin amoxicillin, Peridex, Tylenol. Follow[facility]up with [facility] next week.. Impression and Plan Diagnosis Infected dental caries (CTH00-CG K02.9, Discharge, Medical) Fracture of tooth (JSJ14-LQ S02.5XXA, Discharge, Medical) Plan Condition: Stable. Disposition: Discharged: Time 07/03/2021 15:26:00, to home. Prescriptions: Launch prescriptions Pharmacy: amoxicillin 500 mg oral tablet (Prescribe): 500 mg = 1 tab(s), PO, TID, for 10 day(s), 30 tab(s), 0 Refill(s) Peridex 0.12% mucous membrane liquid (Prescribe): 0.018 gm = 15 mL, PO, BID, for 10 day(s), (swish and spit; do not swallow), 473 mL, 0 Refill(s). Patient was given the following educational materials: Dental Caries, Adult, Dental Abscess. Follow up with: SMITA POLLOCK Within 2 to 4 days Diagnosis today is dental infection, dental pain. From evaluation you have pain and swelling in the localized area of your mouth. This is most likely an infection, we are starting on antibiotics to take as prescribed. -Begin Amoxicillin 500mg 1 every 8 hours for 10 days. -B (more content not included)... Normal [facility] Urgent Care Recordon 021 Urgent Care Record [facility] ? Urgent Care [address] [place] [id number] PATIENT DISCHARGE INSTRUCTIONS Patient Information Name: BERTA ROMEO Age: 51 Years Date of : 1970 Reason For Visit: UC - Dental Pain; DENTAL PAIN Arrival Time: 07/03/2021 15:07:49 Primary Care Physician: SMITA POLLOCK Attending Physician: Ernesto Noland Comment: Visit Diagnosis: Diagnoses This Visit Fracture of tooth (S02.5XXA) Infected dental caries (K02.9) Periapical abscess without sinus (K04.7) UC - Dental Pain ([id number]) If you received any narcotics, sedation, or any other medication that causes drowsiness for the next 24 hours, unless otherwise directed: ? Do not drive a car. ? Do not operate machinery such as power tools, lawn mowers, drills, sewing machines, or stoves ? Avoid alcoholic beverages and drugs for allergies, nerves, or sleep ? Do not make important personal or business decisions or sign any legal documents With: Address: When: [address] [place] [address] Business (1) Within 2 to 4 days Comments: Diagnosis today is dental infection, dental pain. From evaluation you have pain and swelling in the localized area of your mouth. This is most likely an infection, we are starting on antibiotics to take as prescribed. -Begin Amoxicillin 500mg 1 every 8 hours for 10 days. -Begin Peridex mouth wash twice daily -Take Tylenol 500 mg 1-2 every 4-6 hours as needed for dental pain. - Please begin saltwater gargles. Keep appt with [facility] for next week. You may follow up with [facility] dental clinic at . You may follow up with [facility] [phone] ext: [phone]. You may also follow up with [facility] dental clinic at [phone]. You may call [facility] at [phone]. For adult dental emergencies please call [phone]. Return for worsening symptoms or concerns, spiking high fevers, redness going up or down side of face, swollen eyes, or any further questions. Medication Information: The exam and treatment you received today in the [facility] were for an urgent problem and are not intended as complete care. It is important for you to follow up with a doctor, nurse practitioner, or physician?s medical library assistant for ongoing care. If your symptoms become worse or you do not improve as expected and you are unable to reach your usual health care provider, you should return to the Emergency Department, we are available 24 hours a day. For those patients who have received Radiology results, the interpretation of your X-ray as given to you by our Urgent Care physician is only a preliminary report. The Radiologist will review your films and if there is a change in the diagnosis you will be notified by phone. Please make sure you have provided a working phone number so we can reach you if necessary. In the event that you had a lab culture while you were a patient in the Urgent Care, you will be notified by phone if there is a need to change your antibiotic. Please make sure you have provided a working phone number so we can reach you if necessary. [facility] has provided you with a complete list of medications post discharge. Please inform your patch worker/provider of your visit and for further instruction on these medications. Any specific questions regarding your chronic medications and dosages should be discussed with your primary care physician(s) and/or pharmacist. New Medications [facility], [address] [place] [address] [phone], [phone] amoxicillin (amoxicillin 500 mg oral tablet) 1 tab(s) Oral 3 times a day for 10 Days. Refills: 0. chlorhexidine topical (Peridex 0.12% mucous membrane liquid) 15 Milliliter Oral 2 times a day for 10 Days. (swish and spit; do not swallow). Refills: 0. Medications to Continue That Have Not Changed Other Medications amphetamine-dextroam phetamine (Adderall 5 mg oral tablet) 2 tab(s) Oral 2 times a day. atorvastatin (Lipitor 10 mg oral tablet) 1 tab(s) Oral every day. cholecalciferol (Vitamin D3 50,000 intl units oral capsule) 1 cap(s) Oral once a month. ferrous sulfate (ferrous sulfate 325 mg (65 mg elemental iron) oral tablet) 1 tab(s) Oral 3 times a day. levothyroxine (Synthroid 112 mcg (0.112 mg) oral tablet) 1 tab(s) Oral every day. liothyronine (Cytomel 5 mcg oral tablet) 1 tab(s) Oral every day. Visit Information Allergies: Substance Reaction Symptoms Type Comments No known allergies Drug Vital Signs: Vitals and Measurements this Visit (last charted value for your 07/03/2021 visit) Vital Signs This Visit Temperature Oral: 37.5 DegC Apical Heart Rate: 87 bpm Systolic Blood Pressure: 134 mmHg Diastolic Blood Pressure: 76 mmHg SpO2: 98 % Oxygen Therapy: Room air Measurements This Vis (more content not included)... Normal [facility] Coding Summaryon 06-22-2021 Coding Summary HTMLBase 64 JpxctaygYFc4gYf+PGhl YWQ+CT6TDHTsJ46lxJWe jS2PM4yMCC6FBDJCAJVX QQ4UEM5ytAL9SOdiN0Oo biAv AtmysCCkNF63WVo0UVK6 vUitSHnayF2oaKToO0h3 KcRcCJ40gC18SKgsIZSb MkP9GuBhpgixsLVu D5hqFxWigCHkPgq+PHRh YmxlIHdpZHRoPScxMDAl HfGeeOcnNE2qKm4yISHy LWNvbGxhcHNlOiBj u3jnSCPdFSgaZB1vxDgr X2PnsFS0GTOrn8r9Zs52 dHI+XFNkOUH3eDupHWqo c873BxEuy0uyMLO9 nGWeBFwkHTY5H68ko1F7 MTEaHQKwBBC3rWO9vN4v cRlusplkK5BbjWDiDrS2 YBA7hWTncU9llXpg jcsbkG7bVuj+E46GEW6I BMNMNV0FLht0Y7ZnAmpq dHI+BY76RCUeBJ20cHIb hXJgb9mfgZa7ZvTr FASsXCP9jYooJAtgy1Ou NNWjL91jgMGmb8X9YOIg nNftsJSsIhOeiSD0mE4i CQmdcwyhn4hzwfyo Xodje4lqfp93hX83A68m NNghXSQiPML1SRZyFTNf iHienk4tvV9sMx1+IDxj e0pcx3xpoQh6FaGc KFBfrvTnoBgsKND0a8Og Gr32P2GrbMpdy0QyLdq2 tt48bOHst7F0gSH6SVae GEBaeX7wJDplNmK5 AUMbOeEjpW76qKMrDEbd Sn5qcHvxvJqpBX3pQIBp hhweUXNrfV9nNHYnzKEo cSytBN1bOYVrwutw p344FdYwKWR7RJFotQQk T9NapF8tUnVcXXSaCQSo H4DrsSIoBQgoE973DLcx NlV9XIFbfkNmF1Pu CPVsqGucMiO6g4P4Ao6E g7HfoawbGYK1FItbHBAf QvO4BaFbQfG5R9AeKbv0 HOFpfUfeIN5aW9Db AVNtiamrronrdJA8NPWe ZFXfqD41jULlCRbvTy9s b4T1x440WDNhALGjvI64 Lm9vkUurVLMdcNCS lR1dfbkax4jyqixcXwYc UNJrXKs4PWg9CBFscXdp HxDpWZY6TrT2ZSH2aSDg xQ2ebGpmlatctL6b Oyc+O12uqX1uSMP5FNA9 mqlaFSQspkBvGS88SI08 I6DmNaoymJMwbTQ+PGRp jkClhZwnGU2fUiOc n5hiq0RfEGjnL6EiJVHi SJboOvj8JMUiDXS3mXB8 mJ3kOUHlEFlss8N6xXN2 U9OpgtNbnu3fj8lz KNPqUFjzU29esEGoq1A8 KFGtaEP0ECNyeGloRgCh eS15Rok+NZJvhNsiq8Rm Pxjps2hzq8jqpWk2 IjMwJSIgdmFsaWduPSJ0 q9XwBx87E35fZGccMLRh GSZkYZYpHKFkoQbgju5h qN0lBr4+PGNvbCB3 oNW3iK5bGGRtZkQ7MRhn I478LkLrgDNrEovic6at a9mqcWl5QqZjXWLciaHf vFbiVNL7d6VhNo55 H46aFRymLXXeJXPyOYHo UKBooSxdia3gdT2cYe8+ FP0py1uokk95kD27tAF+ SKEtRUQ6iAhnFDck BPPodU4hHGafWwJ9ACEo DaTzzC24jBErNWzyMo4f gElgyKrwVV0qAHAvmnuh s410WiQsy5yiVMSb xSGbQJssHFT8X43yn5T2 QAIgQBFaQLP3jNP4oJ2z bGlnbjogbGVmdDsgdmVy vLkcDYbnSCrdN107 IHRvcDsnPlBhdGllbnQg RiDuEWt9A4QlFik8LESi gNqhUQ7oqGClQMimNu8m rFgbzWwbNW1rIMOo ycqat193JgIos6xjCEId gLRuMMrdAMI5F02au2K6 ZRSkMOMoGQF1kFG1qO8h bGlnbjogbGVmdDsg thMtnGsyZRphXVduR579 IHRvcDsnPkJpcnRoIERh tXQ4HK41GF31hBEdj4A8 eAN9L2QqOWUksdfc rrxhoRQ3WPQlXQIwnG36 Zi8ytBgfIu8qEAAkQET0 RVMkiAFkC3BmtF2gIfIc LGYhQVRtQ0IfqQNx KNoqD542HEoxUrO7EVTl wpClA6ZqRKMetUluBbM5 v2I3Jk5IP0D1QB53ZZ44 tKYzr5G3nGY4P0Ft YFFshujhfdkkrNR3OJNh VNWvpC27Sc3clLtvMz4f LTSvMQM1CIAksVZpH7Bi nZ8qXsHbYPFbCBLf T8XtaROfUUmiN437JWwq OrX0EKJmydUrY2IvEEAv tTpwSdY8y7K4El7GERk6 XY99LT05xKWre3T6 zZV5C6ZrPNNjnhqzmzgn nOB4ACLeKTRfnM99Wr3d mMxjKx9sMYKpQGK7NBUr zNWiY9BfxX8vKwEw VCRlAEMmG0QczKUvBVeb F358QHokTqS9ZUAcstLb O5QnYJQavQkuAuP1t6G8 Fk7AJHSmTV66BZO9 gRN7NU96PB86E0OcZasf dGFibGU+PHRhYmxlIHdp ZHRoPScxMDAlJyBzdHls BQ7yIt8wBESdHGFg aEohtRLkAcHzz7qbTQBd NNgeJN5uxUdaW2UjuKE9 OBZah1j1Yx46W05wX4Hc dXA+WEYqqQZ6cKK1 qH7xVnIbAhP3VEwuQ953 DkMjhTTmVprxg2aii6gv qOq6PxX4OLPvymLehAbv UUV0j9JvYs75B73r IHdpZHRoPSIxNSUiIHZh vCzvme2ofE1gCz2+PGNv gTA2pAF9fX3hKrXcFlI4 NXdcY961PkOuqGPf Abcrw0nsd5esjTe3IrVg GPMuypUzqZhlTNS3p7Au Wd49P7BbgTwik2AnCuk6 rz24cWFzq8O5aSW9 B4AoFZXounrwpRTsiIxw QN3qBMPxywwyJHKraP1n UBAgK9o0EaMtNnY6ABxa T3ZgblI3XEXcuIXd YNqhQRO8O92pc0H2GTUl DCIjNPE8rST4wJ0wvKtj bjogbGVmdDsgdmVydGlj YKnoWSglM771YWDt fGplOHYotH8kACVfkRLx yPurHE7iXOTtshirXpmV ApIdNH4ZDdvTFzETCBp8 W7DnLqe9QWWhhEux KE0rxQIwHVlwWl7egBin uOolCF3gRURkavtxHTDv dC9rCYWutGZtoOlgRF2q KIVwpfxdh568AyXi VCT7ORLiuXCkO0IfqS3o EbRpQZKgPCSuG8AasOVt XJvsY731XQzrNnD1NEIw fzFnN3VkPTYfrRje JjF6d8P3Wd2nCq3yKr5a PRciLD93ZY89kBFvy0X4 iTX8D1AdYGYqbdtnvtbv xHD2QLQvWJYtiA92 dZThLVyuCs8bm7C6k148 BJMcNJTcnE65Ch6viByd BXEqsPHSnB6udybkc5fl cjogIzAwMDAwMDt0 RHl2AQTtwJyhDhArCGD6 PqJ4IPJ5aDJqqY7gsHfs aqjlhN6zCvv+NDkgWWVh ibE1H3GdLto2FXYv rVcsKL1yzTUtJSxxJv7a yEdyuOkzUE8iUBHntjkw KYYqtV4aGGQziDEzgTyp NC8dBRRuyqgwj598 CtDrMNN5SZBrkTCfL4Lg nV1kDxZwJRMfGAGhL8Mf cUHhBNxaH321BEcaMdW5 MKScecFkY0DxOYCk eAvyXvR1s8J6Bx8RLG4Y ZIR0D6XuQya4WHQicHzs MI2blVTqUUgsXy6uhEzc xFlkMT3lVYAjtezk VCVpfU1bUYXvnIMhqXls LD1tMGXqaygbn894IpQi ZLU5FOKgtICgQ9RaxW1b ZrAjVVAwPWMyH1Jo hGFkPAlxD677LAmzYtV4 CVOkrzDlZ1RqLHHhrJpe IeH5a1C6Rb9TYAbpsUH+ CQ92yt78S5NsDqrt Jsl2RXDuIJD6uQY0cO9c ICOzMQham1W9xYD0E0Ct ntRvfq8op0jkCZDyDDey T06hzISvn4E1YRTx sHG2BYUdpVmrEgOnlW35 Oyc+AYIpmRtpx8OtEhys a7jkg1gfxRx5DkUjVZLl teDpbCmgRJV0r3Eq Th60Y20mDGouTHAxTTBu GEOgKKUxuOdalk3kbH8x Ii8+RZRrlSM0vRS5vW9i XjJfHwE6MAqxY979 BuVrmFToQxjdk9qqy1qe fPo3DeMwHOMdftMigAsj PZC2b7QqOo10L4YqjVqx s7OuBvx0ay55pKWq q7Y9eZK9O1GtGDUfpvet kIVouUhmEQ0oQSFnylkm PFRztT9pILKgI5l1SgXi UxZ9XRqmL8CcyvO3 ZQLglHJjOSTloOICiM0y jsxcb5pwznljFuVyWMKt DPx2CJl6QVOouQaxDjMx GZW2NeM4ERV3mZPx gK0lwNdztyfvpL7vDuo+ VZd7p5xmpCAcUJ9boID4 ON54GJ37bXGtq2K5sOI9 H2BjHTJbmvgnqojw oGU1IKRzGFHffR24Ar0w uFiwIu5cZYOmQDC1HGPo nISnX4MsmB6wQeXmJLIr ULWqY1LfeVRqPXbt V964QSpaOnW3RQCexbUz J1VhBHDyoQugQeD9n4B4 Uw5RPD77XD96VC79mEUa f0Y9nNX1O5NtGPTx txxgwclklAG3GSYcFTAu vT65Sz3uzEavWi8xUCJq TQW0ABPnkDRoM5JogZ9a CbCuQOTpFRHiG6Vz oEDdHUhdE002SYlrLdC2 BILiasTiJ4WwFJUusBga QeN7z2V5Fe8MVu23WB41 EC94jSOvg1S1iMV9 B5NxBJDxmzvyxktvbPM0 PGHfLNNunM51Jr8yiDpc Kc3gODRgZNC0HRPslJKf C5RbuO7qQvAvTFHm WFPyB8LjpEYzDSsnB259 VGlwCuQ9ZTCjmzHnY4Qv BFIeiRnjPoP1w2T8Lz7W UBvnhst4G3KkLdcb dHI+VV89CNLwEA10fTTn uLEdg5zchFo5YoFmETBw THG6kIqaIYgpw9WwXHTs K24ljTVbd1I1TNRx bGx (more content not included)... [facility] Coding Summary HTMLBase 64 BppnpvnsMJi3vKo+PGhl YWQ+NM7GSPMpF27ntKYu sV0UX7mWVI6KHFFZLIYP XD3XBY2uqFJ3EIjrY1Wi biAv KwpipTFzVW84JDx3BXT7 xXciLWzzwT9myBJdL3l5 DfDfOG73nE39RHxnNPEn PpV5YuWxxwgtbPSp A2llUoNcqSZeKax+PHRh YmxlIHdpZHRoPScxMDAl FbRejGssPC1xZy1iMJRl LWNvbGxhcHNlOiBj z2oiLPVcDNgaPU2jhQdo O5DneQS1WWSmm2z7Oe44 dHI+PFBsXSG9nVqgSVxv o158NeVtt6nuBUG0 eKUfICyyWYQ2F85sj5Q6 BECaEPJoGWD6tGX8jT5h iZtplcwzJ2DkdXNfIgM2 ZLM9gTIzaH1htYjv flixoY2vHjb+G31OTR8U ADBXYY2ADip8O1VaMswi dHI+IW97SGYeCO19bLMx zDUjn9rqiNo0HtGf MXJoLRY3eDizRIqax9Wl LLCbG29tpKXmi1J6AJRp sLgkiTNePnZlkVH1oT8h RRdqzmyuz7yixqvp Riblw5blfd88iR37F76z TIvqFJEuCUO2OZPdZOEb pXbttb4htP3eMn7+IDxj e0but5ajtLo2VeLu TRUkvlGxnPxfSHH9i4Ih Hu56Y5JbrMzpp5GaZdp3 os15vEAbs5P3fAT9MViu PVFpsF5sTSbvBlO6 FEYpXcImjQ38uGXoFAxd Wz2tdOawlHwzRH8sMGHc ogppYXBztW4rETMpiHCo qUdyNG5aXBRkcffs x798NoNaALP3COBdrZWe P1PgvQ9hIjQmHEMjJPUw N0JeyXIsMHvxM343IQle WfQ9PPGefnUeV7Tk MTTumPvdElB7f3D9Ma3I s8QkgqeuQTZ9KOyyNOTw KbJ7FvVrZyC8X5PvWip7 HFXqdFgqMR3lQ5Nc JOJtciqeyufctNN1XYRu VXIsoP02wXRuXTclIv6n m3P2n920BOQbRTEasR37 Tz6haLfmTAPfnMNR pA0ntpiap4tmoypwJkMs AZVsDXn1DMm8CNRogKpo GjAoOAO1NeG1WEJ7nXOp qM6ueNysircaiH4q Oyc+F32idE9wQUZ6WTB5 pkkpXGKhrmQbQE73VG78 E5YqSeyarPDryTY+PGRp mkRzvMhxAX3jDlKw r9rib1NkYUgaH7JmFXJp UAsfSyf3IYRnFSG6iVV7 aP7zYBWlZGzuj0W9dQY8 V4ScddWqjw4mz7xq ZJQfUOnxB28omYQpi3K5 YQCndXU8LPAndBywVwSd nM72Oqt+XIApmYpzu4An Jejjv2kmh1gfgLl3 IjMwJSIgdmFsaWduPSJ0 e9PeLw98D95qFWrjZAZw CWTiHUPzOIAweDfeut0d aN7zHy2+PGNvbCB3 vLG4dN7fHPYkZhB6JNtg P196MuCnyUCjCowoh8db u5fwtPb7RpSiPGFfuaRy bGeiXKA0n6OvRj89 J43hNEecIMUaCXVzYWHu DWMzbPltse9aaL5zSi1+ VN6jg4rbwg94uJ68lUK+ VOJdZYJ1xHmvVBdi OQCxhB1hCOpmTaP8QLGu XfCnjH44bMHzYRxxDj6q rUshlGzjLG9nIGFalvgs r424HcPnm8zmLIWw kWYkTJmtLBJ7H33bg5P8 HSJuNYQwBBL2gWB0wA2l bGlnbjogbGVmdDsgdmVy sGnhDSjrRVseI912 IHRvcDsnPlBhdGllbnQg AhAgCEw2I8XpVvf1EPOf fFseGB3eqYKqKFxtFl1s yVlyeWtvZX1nUZHj imhrv613NlPom2ysZVXa iSBiGNvxNBR6E41oi1R9 RPQuILSbJWT4qIK1pA9f bGlnbjogbGVmdDsg wiGykSusCJbnMUegN557 IHRvcDsnPkJpcnRoIERh oCV5PS32ZU28uSPdr6I1 zFO9Z0GhVROjddfp hntcuUY3JDHrLRDbwN55 Hr6nbUhmIv4xBQLkYTL3 PLGrgZOqP4ZypZ7aIpVj GBCcALMzP9DfcQIv QJggB100KEodHdG3WZZe bmAbR6VsEYJdlWtmHbE4 l6T1Uq2PP6X4NA29XT86 aMKvl5Z1cPD7J9Lw KUJdjqdrpwluvIQ4FTKg VIThqY34Wg2caMmyDr9e SMJiDQV8FFQqpLSoM9Qh uN4gIdGtMTAvMRWy Z4DffBFfUEyrY858OEll VlT9HMPgviUsS5EqSKAh sYvjCdI9q9R1Zd6WKBr0 IU28PR70rTSbg3L9 wDL6T2RwVDLdajjcbweb kLQ8XUOaDQZtrQ12Tb8j qTooHa5kKFGqHZF3JCUa lHOhY9ApgU6gDiRk NSIuSXYlS1EjfHEcCXqx J292YLmxNwJ4TRQjqjMx E5VnBFWnvLvfZcX2z3S3 Yw4TONReVK04WVU1 iKS1LP63FD86S1OwHtkz dGFibGU+PHRhYmxlIHdp ZHRoPScxMDAlJyBzdHls UY7tMa3dFTMzQXIp hQviuBXwVeGth6uaFYQk FLagGS5hwWtnC5WdnZX4 VNSaw0f1An51J34vR9Aw dXA+PHWxkQB0sOY5 xM2wDzPcGoU5DTlfV389 TsHxlZGsMxhrn9ene4km yEu9DaS1URQlxvBjlApp HGU1f8GiTo30J54j IHdpZHRoPSIxNSUiIHZh cVjcbh0ccK7sOd9+PGNv kLU4nLD7hP4vUsDaAwH7 AJrdP453GuItwLOr Qynxg2pxt9tefSx9EoYb HONpfyOxxAndZWB1o8Pb Sl35Q3RsnSpue3RfGnj6 pe73vWFev0E7jCB2 Z6UsXKIyxyrhpOIbrZvi CS5mDWSkmlqgBKRkzS6o YQKvW9b1QqFdWqV7JNsl J2CmvrL1EQKshWDd LQftGRD4F25fx9A1UARr IEFdEXX9kCT3jC0olBip bjogbGVmdDsgdmVydGlj XXnlOVssI301BKHv xBzeQUWgtU8jKBYiuQAi cMkbBB8pIKZginsyTsjE YmYiES7ZCukPTzMZWEv2 P0XuGoc5YPVeeJrz KI7xjYIeAQqpWl1ylRji pAdfFY4zAHJvkrsoVJMv oE1lFELxxKNcgCcjUJ0s FQKjlacqv810YbWs TCW5HFDwkZYhV0HioP4c ZsJfQETqRJDyA1SumMKc NJjlJ442TDuxMoS8ZGUe dtKkE7DmLNIqqUmj JhR0r3A0Mv3dDa7vTm9q EMveJK16BU95vLNga4S2 fNU3Y3ZmXDSwiwldeojc qRJ8ZEZfUGXyoZ26 hLFvXZarTe9yn7V1p178 VTSkBCOfmC06Ix7amTte YKKtaZRUxU8biqnhy2zt cjogIzAwMDAwMDt0 FHs9QJHndAzpNrYrRCE9 VgX5IZX1qLQanR4apCmi nwcakX2oVxp+NDkgWWVh bhD4A7ZsSyq8WBTe oAqfFO7tkBHhKMhuKm6u oXpysTfoMW8qKUKgkiya MAUbyM8yALKesMSnlRjb RZ0wWPVnjxmwf377 BaVpBLN5XDKssDGfH4Dj xZ4zYdSvNSUpQOUkX6Ks iLUyKQieY845OGjeIcT1 QEHkesErB0XzDNMv cQuqScC5j0Y6Ur0FRF3Y KCW5R5NhKma8FLQlfYdc RC2ccTUjZJswHg8maSkq dZxzKZ4wWLDdsmhr QFFqqN7oDRMavINjvOgx GE5bKFTomocar804SwZe PFM0GXNsbEKwY6BkmT2f FjZaBLVnHMRmS1It nGPqZQjqJ616FMneEoF8 AKIhetPkS8WlKZPkmBre SjO7a7F5Zt2GgJEfM1Gg F4q9J6QdVagtrNM+ JD07KHIoRZ90zNJslBJs w1lijXb8FjYjOCYcYTU9 rKavFDhvx9HrQVOaZ01a vJDhf4K1FSPjkZch aJNkNhXxqRG6xQ3qJKai uwlln1xjzmvdYllud7en jf35aE75L81bJGtzNHGj PSIzMCUiIHZhbGln pu2pjC9zVd4+PGNvbCB3 zHZ1nD5oVfYqKhO2WWtw C556WfBkzZXaHtutt0cb c5altFm7ClWqJTUi muGbfFpbARV6p5XpFq80 S78fIAhwQTZkMSOfIMYp STMkqHqapf3uoI7lYe8+ LQ5gi5gpde38cH39 dHI+GPYyQRW3sSnvKEmp KBNksM6xCKxcYoD8NBRs IuCcrY05yEXpSQzkLb6n jIforXgyPR8uIMMa txwob376QlWjn6amBBHs iZCzHFdbAVZ0D24um9M3 DXDtNHJdBOE0dYB2pO0z bGlnbjogbGVmdDsg mlXfrDniPNfpYQniL974 UAHfqNmmMpPqnWQjO9gn alWPOD1jPglnuWN+PHRk ASQ5gXrxTAdtROEo kN1zWCXpJ8b4IjDhVcI1 ZXweV8NlcpI1KYZcfCOa KSHdfJBGhE3swtmcn5wt cjogIzAwMDAwMDt0 IYc4ELDzpIopMbJqTQT3 QwG2WUO5zPGbwR5wmTra ixaiqI7uKhn+RklOOjwv dGQ+XGErHTI1kToa QLdjPJXegE0hLJYfX5k8 RmVtLtH8BNsaR0WfrbD9 RHUuiLYtTMAkvCJVfL6b qblnz0nmxcqrSkAj KXIaJQn7VXi2ZBYruZob RxVwNMO4WzS6XHG8cBBu lR7plVqzqtwdlO4lCvn+ TVJOOjwvdGQ+PHRk GOQ5lJtlUAttCIWuqN1r OUOrI0i4QxEiVgY8FHfk U9NfsuX3URJmiAKeMXEh qTWLcN5cmufeh7cl krroZvNeKAQdOVn4FIq2 QGGgjEdsQmMaMSG7AgD5 XHN4dTXqmV7ssJcpzyqd hM3hUsy+UNH6ITS6 KA97PV61I4SsUjfacQUv bGU+PHRhYmxlIHdpZHRo FDxlGWEzVjUzbLojWE6i Hn4jFREaWMNztAjc [facility] (more content not included)... [facility] Consent Formson 06-21-2021 Consent Forms [id number] #[id number] [facility] ED Clinical Summaryon 2020 ED Clinical Summary [facility] - Emergency Department [address] [place] [address] ED Clinical Summary PERSON INFORMATION Name: BERTA ROMEO Age: 51 Years Sex: FEMALE : 1970 MRN: Acct#: Visit Reason: Abnormal diagnostic test; ABNORMAL LABS Arrival: 06/14/2021 13:36:03 Discharge: 06/14/2021 14:49:00 LOS: 000 01:13 Check In: 06/14/2021 13:36:03 Checkout:06/14/2021 14:49:00 Address: [address] [place] [address] PCP: SMITA POLLOCK PROVIDER INFORMATION Provider Role Assigned Unassigned BAHMAN PIPER ED PA 06/14/2021 13:47:01 Spencer RN, [place] ED Nurse 06/14/2021 14:13:51 VITALS INFORMATION Vital Sign Triage Latest Temperature Tympanic Temperature Temporal Artery Pulse Rate 90 bpm 90 bpm O2 Sat 99 % 99 % Respiratory Rate 18 br/min 18 br/min Blood Pressure /77 mmHg /77 mmHg MEDICAL INFORMATION Medications Given: Allergy Information: No known allergies PHYSICIAN DOCUMENTATION DISCHARGE INFORMATION: Discharge Disposition: Against Medical Advice Discharge Location: PATIENT EDUCATION INFORMATION Instructions: Follow-Up: DIAGNOSIS: Patient Understands: Yes - Patient/family/careg iver verbalizes understanding of instructions given Comment: [facility] ED Note - Physicianon 2020 ED Note - Physician Patient: BERTA ROMEO Age: 51 years Sex: FEMALE : 1970 Associated Diagnoses: Abnormal vaginal bleeding; Anemia; Elevated TSH Author: BAHMAN PIPER Basic Information Time seen: Date & time 06/14/2021 14:02:00. History source: Patient. Arrival mode: Private vehicle, walking. History of Present Illness 51-year-old female presenting to the emergency department states that she was called by her official court reporter telling her that her hemoglobin was 7 and her TSH was 75. She states she has a history of Sarah's and is supposed to take levothyroxine but is not consistent with this and has not taken it for a short while now. Also states that she has been having vaginal bleeding over over a month and has had this evaluated by her official court reporter and they are discussing hysterectomy as they believe that the bleeding is coming from fibroid in her uterus. She states that she was contacted by a official court reporter about blood work she had done the other day and was told to come to the emergency department. Patient states she sees her official court reporter at [facility] and commonly goes to [facility]. Patient states she feels mildly rundown but denies any chest pains, shortness of breath, abdominal pains, issues with bowels or bladder. She indicates that she thinks she should just go to [facility] and have them evaluate her there that way she can be with her official court reporter and if needed to be admitted she can be admitted where all of her records are. Review of Systems Constitutional symptoms: Fatigue, No fever, Skin symptoms: No rash, Eye symptoms: Vision unchanged. ENMT symptoms: No sore throat, no nasal congestion. Respiratory symptoms: No shortness of breath, no cough. Cardiovascular symptoms: No chest pain, no tachycardia. Gastrointestinal symptoms: No nausea, no vomiting. Genitourinary symptoms: Vaginal bleeding. Musculoskeletal symptoms: No back pain, Neurologic symptoms: No altered level of consciousness, Health Status Allergies: Allergic Reactions (Selected) No known allergies. Medications: (Selected) Documented Medications Documented Adderall 5 mg oral tablet: 10 mg = 2 tab(s), PO, BID, 0 Refill(s) Cytomel 5 mcg oral tablet: 5 mcg = 1 tab(s), PO, Daily, 0 Refill(s) Lipitor 10 mg oral tablet: 10 mg = 1 tab(s), PO, Daily, 0 Refill(s) Synthroid 112 mcg (0.112 mg) oral tablet: 112 mcg = 1 tab(s), PO, Daily, 0 Refill(s) Vitamin D3 50,000 intl units oral capsule: 50,000 International_Unit = 1 cap(s), PO, qMonth, 12 cap(s), 0 Refill(s). Past Medical/ Family/ Social History Medical history: No active or resolved past medical history items have been selected or recorded.. Social history: Social & Psychosocial Habits Tobacco 03/14/2019 Smoking tobacco use: 10 or more cigarettes (1/ . Physical Examination I did not perform physical exam on this patient. Medical Decision Making 51-year-old female presenting to the emergency department for evaluation after she was told that her hemoglobin was low and her TSH was elevated. Patient states she normally goes for [facility] and her official court reporter goes to [facility], patient states that this lab test was performed by her official court reporter secondary to abnormal uterine bleeding for the last month. Patient states that she think she should just go to [facility] tomorrow and does not want any evaluation here. She indicates that she will be leaving AGAINST MEDICAL ADVICE to have this further evaluated at [facility] where her official court reporter goes. I assured her that we could perform lab work here and perform a blood transfusion if needed along with addressing her TSH she indicated she understood but stated that if something needs to happen with her vaginal bleeding she would rather be at a facility where her official court reporter goes to and where all of her medical records are. She indicated that she understood the risks of leaving without further evaluation, her is here with her and indicates he will drive her. Patient's vital signs are stable at this time, supervising physician indicated he was comfortable with leaving AMA. Impression and Plan Diagnosis Abnormal vaginal bleeding (HGN76-OT N93.9, Discharge, Medical) Anemia (FQT76-MZ D64.9, Discharge, Medical) Elevated TSH (POT72-HA R79.89, Discharge, Medical) Plan Condition: Stable. Disposition: Time 06/14/2021 15:19:00, Left against medical advice. Counseled: Patient, Family, Regarding diagnosis. [Electronically Signed on: 06/14/2021 15:19 EDT] BAHMAN PIPER [Verified on: 06/14/2021 15:19 EDT] BAHMAN PIPER [facility] ED Note-Nursingon 06-14-2021 ED Note-Nursing Patient states she would like to sign herself out AMA and go to a hospital that has OB. MARISSA() went over AMA paperwork with her and it is signed. Patient has no questions or concerns. Patient stable and in no distress. Ambulates out of ER. [facility] ED Note-Nursing Patient arrives with abnormal labs drawn at [facility] yesterday. States they called her and stated her blood count was low along with a few other labs. Patient states she has been on her menstrual cycle for the past 5 weeks. Abdominal bloating but no pain. [facility] ED Patient Education Noteon 06-14-2021 ED Patient Education Note Education Materials [facility] ED Patient Summaryon ED Patient Summary [facility] - Emergency Department [address] [place] [address] PATIENT DISCHARGE INSTRUCTIONS Patient Information Name: BERTA ROMEO Age: 51 Years Date of : 1970 Reason For Visit: Abnormal diagnostic test; ABNORMAL LABS Arrival Time: 06/14/2021 13:36:03 Primary Care Physician: SMITA POLLOCK Attending Physician: Breezy Cervantes Comment: Visit Diagnosis: Diagnoses This Visit Abnormal diagnostic test ([id number]) Prescription Information: If you have been given a prescription for narcotics, seek immediate medical attention if you have any difficulty breathing or any sudden status changes such as confusion and sleepiness. If you or anyone you know is experiencing suicidal thoughts, mental health, alcohol and/or drug addiction problems; contact the Mental [facility] Recovery [facility] 30/03 Crisis Hotline -Text 4HPHZ to 008208. If you received any narcotics, sedation, or any other medication that causes drowsiness for the next 24 hours, unless otherwise directed: ? Do not drive a car. ? Do not operate machinery such as power tools, lawn mowers, drills, sewing machines, or stoves ? Avoid alcoholic beverages and drugs for allergies, nerves, or sleep ? Do not make important personal or business decisions or sign any legal documents Medication Information: The exam and treatment you received today in the [facility] Emergency Department were for an urgent problem and are not intended as complete care. It is important for you to follow up with a doctor, nurse practitioner, or physician?s medical library assistant for ongoing care. If your symptoms become worse or you do not improve as expected and you are unable to reach your usual health care provider, you should return to the Emergency Department, we are available 24 hours a day. For those patients who have received Radiology results, the interpretation of your X-ray as given to you by our Emergency Department physician is only a preliminary report. The Radiologist will review your films and if there is a change in the diagnosis you will be notified by phone. Please make sure you have provided a working phone number so we can reach you if necessary. In the event that you had a lab culture while you were a patient in the Emergency Department, you will be notified by phone if there is a need to change your antibiotic. Please make sure you have provided a working phone number so we can reach you if necessary. [facility] Emergency Department has provided you with a complete list of medications post discharge. Please inform your patch worker/provider of your visit and for further instruction on these medications. Any specific questions regarding your chronic medications and dosages should be discussed with your primary care physician(s) and/or pharmacist. Medications to Continue That Have Not Changed Other Medications amphetamine-dextroam phetamine (Adderall 5 mg oral tablet) 2 tab(s) Oral 2 times a day. atorvastatin (Lipitor 10 mg oral tablet) 1 tab(s) Oral every day. cholecalciferol (Vitamin D3 50,000 intl units oral capsule) 1 cap(s) Oral once a month. levothyroxine (Synthroid 112 mcg (0.112 mg) oral tablet) 1 tab(s) Oral every day. liothyronine (Cytomel 5 mcg oral tablet) 1 tab(s) Oral every day. Visit Information Allergies: Substance Reaction Symptoms Type Comments No known allergies Drug Vital Signs: Vitals and Measurements this Visit (last charted value for your 06/14/2021 visit) Vital Signs This Visit Temperature Oral: 36.8 DegC Peripheral Pulse Rate: 90 bpm Respiratory Rate: 18 br/min Systolic Blood Pressure: 138 mmHg Diastolic Blood Pressure: 77 mmHg SpO2: 99 % Oxygen Therapy: Room air Measurements This Visit Height/Length Dosin.000 cm Height/Length Estimated: 165.000 cm Weight Dosin.100 kg Weight Estimated: 82.100 kg Problems List: Problem Onset Comments ADHD Hypothyroidism Smoker Added secondary to documentation in Social History. Patient Education Viruses or Bacteria What?s got you sick? Antibiotics only treat bacterial infections. Viral illnesses cannot be treated with antibiotics. When an antibiotic is not prescribed, ask your healthcare professional for tips on how to relieve symptoms and feel better. Usual Cause Illness Viruses Bacteria Antibiotic Needed Cold/Runny Nose NO Bronchitis/Chest Cold (in otherwise healthy children and adults) NO Whooping Cough Yes Flu NO Strep Throat Yes Sore Throat (except strep) NO Fluid in the middle ear (otitis media with effusion) NO Urinary Tract Infection Yes Antibiotics Aren?t Always the Answer www.cdc.gov/getsmart GET SMART Know When Antibiotics Work U.S. Department of Health and Human Services Centers for Disease Control and Prevention May 2014 [facility] Coding Summaryon 06-10-2021 Coding Summary HTMLBase 64 RzmpgddjKAz1gBm+PGhl YWQ+LR7WPOCoO96llZSp sW7YP9eCHX1KKVIRDOGV SA7EXQ8uvQV0LMrtC4Tk biAv PxbcnMCyXM26IMs5ADL4 hHciDScqiX1avCNyY1z9 NwFvVT28aS26QYdrVLKr NmC2HoQdntosbAGg M8fbSbPljYBqStn+PHRh YmxlIHdpZHRoPScxMDAl AlCclPnbSP9qUi2mZMNk LWNvbGxhcHNlOiBj t0ktWOLvAVasWQ2hzRvn U6OskYP0FZDno6x3Yj37 dHI+IKVvFOV8hHdcTMme b527UrWep4zdDQL4 hRBfKVasBLW5Q47hs6F1 GAAvYEYtDJY5bAF6aL3f iOuidkfsF2NojVMjBxZ2 SRI9nMVolG8ddIqh elghpV9tLpu+O23ITB8I QLIOCH6URyj7X5EqMxti dHI+RH98KPJhIO25dIXz mITik8yktHz5GwLu ZVBpUUH4rKmuNYzgx0Du MDVaI82mcSEji1D8ZGZv eTtslAFuYcCtgHC8sX5c DKrgpfrdc3bhgnte Kbhcz4ydwk16kJ88R17b XAlsEQVlWGJ8NBRxJELg sHamjd8gjP6mDk2+IDxj q5rjc8pqhSq5WfBz JCKulbIkjThdAVN1f6Aj Ft63F7XhlEkww7ToGyh9 di23sRKvh9H6hZU7HHgq MSLbhG9xCRxvQxC8 YXTnMnQsnI13kTVxLYdo Ld6lkJbntJzyGX2fDXGg vepqLLOyoJ4yEXKexOVh fPflXK9sBEDysoji v097OiXtEAU6DEAlrDLm D0VgdP0jRqCkQQXtDENi H5KpxDOkZRbdM849AVqv SqT9JHYcuvNfL7Tf TEOvsZtdNgQ8v6Z1Ap8U t1PzvalbTRH7NFofFADz WqJ2AoHdGkA8G6JbUwa6 WHHdeCerFU6rW6Rg LGJqwzhxcjgchTI4LKUx XJDbdG24nZEkUJxpLh6c z4E6y260OKRcTDHdcN71 Qx6bwOnfZIKgiBEE nA8okhruc3qgpxafQwId KJPgNZi7XOr6GHDsiPvy IzLbKBN0HdO1XQZ4fUGn eT9nkUcthjfyyO7r Oyc+I76fvB0sPLS2BYP8 mpxfMECxccLoNY04GP16 L1ZpVxicaBGtfUO+PGRp bhXjkZpaPS2rToWt q5rsv6ViVHdtO6EcZURh VQoqYcx7EPSkXNQ2rFY9 xR5jLYXlOGcew3D1pTE4 I0ByzuFlpc5nz0og HQPkIKisQ30zeQDfj0P0 HTUtkWU7LRIqlNopKxAx iE44Qmz+EZOgyXvml3Yq Cevhu9wix7upiJj0 IjMwJSIgdmFsaWduPSJ0 k9IhXh95O67bLFzwVVMf YTCeCRFiHIXkzLbdwh5y dW6qWf8+PGNvbCB3 nJD2mK7xJYPaLeQ6CEay R744DlFlzBSeMhtpy8yl n9thnXi1CiCcFYUevdCb oMxcNXG5x2OgQo16 Q10fWIggDCBrVHKkBEKk GZTqzAyjus2jsN5bTl0+ DI3kd0cpnu93pI12fKW+ ROOpTDG7zScjMFfa TKQdwZ3lLLsdAxT0YLXd BoLfdP75lKLmKNkgRg3d aJritXkaRH2iMWQikqni r318SoQfn9exQTHy kUQbWMzbCZD3L43al6Y5 ANEjPXJzJKV6gDZ2mB3r bGlnbjogbGVmdDsgdmVy rGbqAHnbHImeK475 IHRvcDsnPlBhdGllbnQg JlAzBQn0F5HmJcw8EAYt tZrbGO3uwNNaTYdqRc2s zUxrbSurYO9bBUUj cqqro844UpCly7lqGSBx wKOaAAwoKFN1M20en7M6 LVZmTAPnKKO4lKX4jS2s bGlnbjogbGVmdDsg hrKeoLopUYbhICprB774 IHRvcDsnPkJpcnRoIERh pAV5VY63ZB73oMLkq8S4 rAP5D2KySDSnnfjy bpmaiFY5PFFgNYQceA22 Wx0gyAtmTn2rENUsDZN9 OHOytNCfJ6SthU5hJoOy HLWhZFSgA0JozULf LVuxO725KUdgJqY6RRRa miIeJ3HmTFQnkVwbAiO8 m5H3Ml3FW9B9RH26GS89 nXVyu0D5wAA6I4Fd BYTnfinavdaikKF6PGOr IVBlpR68Rm7tiHozVc6z QUIaREY5FSQqnQKxC6Cc qU3qDuXzYVHmQDWt O2QooJEtCAbaA132MWrg ImM6YRQbepLeU5KhOQYh dVnsFlO1a5Y1Id5GLIo9 IL46VB65hTApd3P4 lBS6I1JzSIEsogazlvdo lWR1ZDFcKYUxzX32Je4c fLqwCd2vZGHxOMB4RYAz wOAvO3UlsJ3lBrIw BYAyRNGyE5EocRXzCIfm O335KUzzZlF2PAXrssBm K1LvXITswJioHaH8q5A0 Cv2PTWHvUC32KGN6 oVE1JW54NN38G5ZcUjeh dGFibGU+PHRhYmxlIHdp ZHRoPScxMDAlJyBzdHls GN9xZf1iEUTqLJNl hSartWLtMhNhb1ycMZGp FEzcUA7voXppI5GnuEX5 BQNur9m6Sg30S49gR0Eo dXA+HAIpxSO8gSH1 fR8zPlLbBhJ6LWivV211 YiDbdZBqFgfqv7xkj4lb tKu6VoM9IESbejTxwSng VGN2u3RrTy48I11n IHdpZHRoPSIxNSUiIHZh jAopqw9loI8tZp4+PGNv vAL3nJF9cK5dCjTnBjA8 GQqyR786TsSmjMOq Zyycl4ufu6nlxRv0RaRo TWVozcOxcPwbBPL7b9Ug Mi09G7PmuEkrz3NqAay8 pd14cCZfc1J5lKK9 B0DmCJWpctipbSKiyWgj SB1eQMDljsueYYEijE7r SUVxV0n7VhAnVsZ1MRar E3JhrpF5DUVftGDv CSrpFSM9D93gs6T3LLEz GUYyOKC1xXH6oS2mzTqp bjogbGVmdDsgdmVydGlj RFbuFYtbX204QZRw nUgmHLXchW7nJKVuaVPo qEiuSH0qNYIocsrbGatU NgEqOD4HWgpPJcGYJNh4 I5MfSkx8BTDmeIbx EJ7aqZJxOHosBd0bgBzr kMmnDN4uSRPltblrUHWf vE9sEYRqhJYonSkfXY5q KDZxnazhh154AuUu BLM1CKTwuUNnG5QubN3a LjBhSUWrSMRtK3SisLHe OXqoW712ETvrReP5QMRq jpGfL5MtZPBffKpt PaV1d1L5Hn4sZw7pRl0m ILqcKV92HZ13sJCss9O0 pXF2U6SvDMXiwxhhagjf bBE1CCIiDGPdrA49 oLEgPZubZz1ln3D7q207 ZUEsKDAraN43Lx0vdNum CDYvbKLRsM8wetwif8qe cjogIzAwMDAwMDt0 GZn0XEMipVleXnAkPPR0 SmC4SUC3pVUigI7haAhw ysbkeS7oYnj+NDkgWWVh bfK2L1YfRoq4LDSe cCaiIG1kzHZbLQzsHx0a nOeuoOwxGP4qTAFvnwxg ZYKwxV9qZRFgoYAjiKtm QT5aLSKxdyxux827 ZuOwKGV3YOKunRAeO8Ng wH1eFlAwKNTeAYViV4Cf gASzSNosC275ZPgvDzT7 KYXkmjJbJ8DhOYAo tHuoOiT6c8N3Sp0EBF4J XWK7W8NwFlx8LTDfkSgz DR9apXThUTsgUv2qeLlc dJwmBK0wBIVxuyvl CJFqfJ3sEHNhzBHjyVcb MN7qPZQxkvzsp165JtTn GSJ3QVNlzGMjI7PxeE9k WjQbWOBbXSEgJ2No aJVbTXzkD548KYmcQgR2 NTNkiqChE7DpMUXnqZma IkJ4q7E0Sm8AHDwhjRN+ YY65rw68K7QkEoeh Eon9JIIfEPB0uZI5gL2d JRNpTIvyz4X8gTU3V3Md lnUhca1rj0ycKIEsRLra R91kbCQyl7I7LAPt pBD3VSRpxPuhBvYxtP61 Oyc+RSRktDogd2ZnQwal f6xqv9fldQv9KqZwVMFs ndOdnUmzGZL4y4Kj Pi28P79xLMkrSUExJAMk PNBrFTGlyCclup5gsC0p Ii8+AAHyxCB2xNI4cF5q AuOqSpN4WJbhL095 WfVmwJFwSgapn1odz5js hSn3EbWhIKFsvbXfcEte MBJ7n5BsZg35D5IfkCbb f8LnHdw4vo02lQDc u0G6pII4F2XlHHPmfsxr sJPrrNvfSJ0gNVKcqudp MENnvX6cXJUyD3a0RaPv ZmU0JDlcC8WgshH0 BTQexGQaIYGcjHOJaG1l tgtyj2kmxyxwBfMhAWNs GUu0ZNa1PJBrkRnqAfYm SZR4IwI9DHS6zWIc yF3twHyghgoviQ0vSgm+ TMw3d7khkKNaWK3dxON6 SN97ZT57vFUyz1A4iWF3 Z3WeVPMlqqmyfmch xPS5WOZyTQMcyO46Lg4b zGoyOx3fTOPrOGV3NZAl cRVmQ0WaaP0aCcWqBXTr LBIbU2TtoMXyWSzy M962UAkrHoI2UQIfkhZq A7FmIENusLzeGkA8f9M6 Fb7IKV41XR11UP43lHEj c9Z3lMJ8H2QiKPKy xobhsawjjUZ8AVAuFBUw tL19Ov5kjTfnKj2yFJWw WYE8OXDplUYuG6FnvJ3i WcUgDSKcLOYcV3Yg xRTvQGfrI505CYqsBpR3 HDXjfaNhD0YbZGNqxJjn VaX2h7R8Yj4LCv86RU38 IV24hNEbs4H5sMZ4 V5MwHJLoynfmrodloJE3 LBIlUVYloG96El2phHgo Bp2bUWGuFVE6PIMzzCVy O4MqyT2vQaFpYQWs YAJzI4DwlHMcLGafQ024 PNhgNsA1AYTvesYuS2Ha KGLjzUnzZuB9p3B5Jl6L UCxuccc0F4IzUjcb dHI+FB27JWCdQQ72tGDl tFFfc4bnvPf4JoHsKNJo DDF7uBheQWnxv9YrIDCa U80nvHFef4R2ZQTc bGx (more content not included)... [facility] Provider [place] 06-05-2021 Provider Orders [id number] #1.00OTGTIFF [facility] Provider [place] 06-03-2021 Provider Orders [id number] [facility] Bilate ral.on 06-01-2021 [place] Mammo Screening 3D Bilateral. MAMMOGRAM SCREENING 3-D BILATERAL CLINICAL DATA: Routine screening. Screening digital mammogram study of both breasts was performed with 2-D and 3-D tomosynthesis imaging. Study was compared to the prior screening mammogram study of the breasts performed at outside institution dated 05/01/2016 as well as diagnostic mammogram study of the left breast dated 05/20/2016. Breast tissue is heterogeneously dense bilaterally. There is no evidence of interval dominant spiculated mass, grouped microcalcifications, or skin thickening which would be suggestive of malignancy. There is a postbiopsy clip on the left, similar to prior study. Axillary lymph nodes are noted bilaterally. R2 image [employer] was utilized for this study. IMPRESSION: No specific evidence of malignancy seen in either breast. BI-RADS 2 - Benign, no evidence of malignancy. Normal interval followup is recommended in 12 months. OVERALL ASSESSMENT- BENIGN A letter of notification will be sent to the patient regarding the results. Assessment / Recommendation: 2-1 Normal interval follow-up Breast density: Heterogeneously Dense Recall interval: 012 months Final Dictated by: Jethro Rae MD Dictated DT/TM: 06/12/21 2:07 Signed (Electronic Signature): Jethro Rae MD 06/12/21 5:14 pm Technologist: EM Assessment: 2-Benign finding Recommendation: Normal interval follow-up Normal [facility] US Pelvis Non-OB Completeon 06-01-2021 US Pelvis Non-OB Complete EXAMINATION: US Pelvis Non-OB Complete, US Transvaginal HISTORY: ABNORMAL UTERINE BLEEDING COMPARISON: No relevant comparison available. TECHNIQUE: Transabdominal and transvaginal sonographic examination. FINDINGS: UTERUS: Large rounded heterogeneous mass enlarging the right side of the uterus suspected represent a leiomyoma, 5.6 x 4.8 x 5.0 cm. Large amount of debris/clot and blood products versus mass within the cervical canal. Multiple nabothian cysts within gonzalez of cervix, largest is 1.6 cm. Uterus size: 12.9 x 5.0 x 9.8 cm ENDOMETRIUM: Suspected 1.2 cm polyp within the uterine fundus. Endometrial thickness: 18 mm. RIGHT OVARY: Contains several benign-appearing cysts, largest is 2.3 cm. Duplex Doppler demonstrates normal waveform and flow. Ovary size: 3.9 x 2.7 x 2.9 cm LEFT OVARY: Obscured by bowel gas. CUL-DE-SAC: Unremarkable. No significant free fluid. BLADDER: Unremarkable. OTHER: None. IMPRESSION: 1. Suspected 1.2 cm polyp within the fundal endometrial cavity. 2. Large amount of clotted blood products versus mass within the cervical canal. 3. Left ovary was not seen; obscured by bowel gas. Right ovary contains several nonsuspicious cysts. Final Dictated by: Ja Garcia MD Dictated DT/TM: 06/04/21 7:45 Signed (Electronic Signature): Ja Garcia MD 06/04/21 7:55 am Technologist: [facility] US Transvaginalon 06-01-2021 US Transvaginal EXAMINATION: US Pelvis Non-OB Complete, US Transvaginal HISTORY: ABNORMAL UTERINE BLEEDING COMPARISON: No relevant comparison available. TECHNIQUE: Transabdominal and transvaginal sonographic examination. FINDINGS: UTERUS: Large rounded heterogeneous mass enlarging the right side of the uterus suspected represent a leiomyoma, 5.6 x 4.8 x 5.0 cm. Large amount of debris/clot and blood products versus mass within the cervical canal. Multiple nabothian cysts within gonzalez of cervix, largest is 1.6 cm. Uterus size: 12.9 x 5.0 x 9.8 cm ENDOMETRIUM: Suspected 1.2 cm polyp within the uterine fundus. Endometrial thickness: 18 mm. RIGHT OVARY: Contains several benign-appearing cysts, largest is 2.3 cm. Duplex Doppler demonstrates normal waveform and flow. Ovary size: 3.9 x 2.7 x 2.9 cm LEFT OVARY: Obscured by bowel gas. CUL-DE-SAC: Unremarkable. No significant free fluid. BLADDER: Unremarkable. OTHER: None. IMPRESSION: 1. Suspected 1.2 cm polyp within the fundal endometrial cavity. 2. Large amount of clotted blood products versus mass within the cervical canal. 3. Left ovary was not seen; obscured by bowel gas. Right ovary contains several nonsuspicious cysts. Final Dictated by: Ja Garcia MD Dictated DT/TM: 06/04/21 7:45 Signed (Electronic Signature): Ja Garcia MD 06/04/21 7:55 am Technologist: [facility] US thyroidon 11-08-2020 thyroid [facility] Main [place] [address] [place], [place] [id number] Ultrasound Report Signed Patient: Berta Romeo MR#: [id number] : 1970 Acct:[id number] Age/Sex: 50 / F ADM Date: 11/08/20 Loc: Room: Type: [facility] Attending Dr: Butch Worley MD Ordering Provider: Buthc Worley MD Date of Service: 11/08/20 US/US thyroid: E06.3, E04.2 Copies to: Butch Worley MD Thyroid ultrasound 11/08/2020. CLINICAL DATA: Follow-up thyroid nodules. FINDINGS: Sonographic evaluation of the thyroid was performed and is compared with a prior study 01/19/2019. The right lobe of the thyroid measures 5.4 x 2.0 x 2.5 cm in longitudinal, AP, and transverse dimensions. The left thyroid lobe measures 1.9 x 0.7 x 0.8 cm. The thyroid isthmus measures 0.4 cm in thickness. The thyroid again demonstrates generalized heterogeneous echogenicity. There is a 1.3 x 0.8 x 1.2 cm hypoechoic nodule in the interpolar region on the right. This finding does not appear significantly changed. The small hypoechoic nodule seen anterior to the isthmus at the time of the prior exam is not currently visualized. US/US thyroid IMPRESSION: 1. Redemonstration of an enlarged right lobe of thyroid and generalized heterogeneous thyroid echogenicity. 2. Stable hypoechoic nodule in the interpolar region of the right thyroid lobe. Impression dictated by: Nabeel Clarke Jr., M.D.11/08/2020 12:41 PM Dictation Location: [place] [address] Tech: Ira Starks Transcribed By: KELSEY 11/08/20 1241 Dictated By: Nabeel Clarke Jr, MD 11/08/20 1234 Signed By: 11/08/20 1241 [facility] Free T4 (Free Thyroxine)on 0 10-30-2020 Free T4 [Mass/Vol] ng/dL Low 0.61-1.12 [facility] Comment on above: Order Comment: PT IS NON FASTING Performed By: #### T 3F, TSH3, T4F #### [facility] [address] [place] [address] #### THY AB #### [facility] , Thyroid Antibodies TPO+Tg Ab on 10-30-2020 Antithyroglobulin Ab 1713.0 High 0.0-0.9 [facility] Comment on above: Result Comment: Thyr oglobulin Antibody measured by [employer] Performed at: - [facility] [id number] [place] Planner: Nick Lambert PhD, Phone: [phone] PERFORMED BY: [place] [address] PATHOLOGIST LAUNDRY AGENT GARTH VILLALTA M.D. Performed By: #### T 3F, TSH3, T4F #### [address] #### THY AB #### [facility] , Thyroid Peroxidase Antibodies >600 High 0-34 [facility] Comment on above: Performed By: #### T 3F, TSH3, T4F #### [address] #### THY AB #### [facility] , Thyroid Stimulating Hormoneo n 10-30-2020 TSH Qn 62.38 m[IU]/L High 0.45-5.33 [facility] Comment on above: Order Comment: PT IS NON FASTING Result Comment: PERF ORMED BY: [place] [address] PATHOLOGIST LAUNDRY AGENT GARTH VILLALTA M.D. Performed By: #### T 3F, TSH3, T4F #### [facility] [address] [place] [address] [place] #### THY AB #### [facility] , Triiodothyronine (T3) Freeon 10-30-2020 Triiodothyronine (T3) Free 2.10 pg/mL Low 2.50-3.90 [facility] Comment on above: Result Comment: PERF ORMED BY: [place] [address] PATHOLOGIST LAUNDRY AGENT GARTH VILLALTA M.D. Performed By: #### T 3F, TSH3, T4F #### [place] [address] [place] #### THY AB #### [facility] , Vital Signs Date Time Vital Sign Value Performing Clinician Facility 12-30-2021 17:45-0400 Body height 166.37 cm Donya Rtohault Other [facility] Other 12-30-2021 17:45-0400 Body mass index (BMI) [Ratio] 29.49 kg/m2 Donya Rothault Other [facility] Other 12-30-2021 17:45-0400 Body temperature 96.8 [degF] Donya Rothault Other [facility] Other 12-30-2021 17:45-0400 Body weight 81.65 kg Donya Rothault Other [facility] Other 12-30-2021 17:45-0400 SaO2% (BldA) [Mass fraction] 97 % Donya Rothault Other [facility] Other 10-15-2021 11:00-0500 Body height 166.37 cm Adriana Carroll Other [facility] Other 10-15-2021 11:00-0500 Body mass index (BMI) [Ratio] 31.13 kg/m2 Adriana Carroll Other [facility] Other 10-15-2021 11:00-0500 Body temperature 98.7 [degF] Adriana Carroll Other [facility] Other 10-15-2021 11:00-0500 Body weight 86.18 kg Adriana Carroll Other [facility] Other 10-15-2021 11:00-0500 Diastolic blood pressure 78 mm[Hg] Adriana Carroll Other [facility] Other 10-15-2021 11:00-0500 Respiratory rate 18 /min Adriana Carroll Other [facility] Other 10-15-2021 11:00-0500 SaO2% (BldA) [Mass fraction] 97 % Adriana Changiselle Other [facility] Other 10-15-2021 11:00-0500 Systolic blood pressure 132 mm[Hg] Adriana Carroll Other [facility] Other 06-18-2021 11:00-0400 Body height 166.37 cm Adriana Carroll Other [facility] Other 06-18-2021 11:00-0400 Body mass index (BMI) [Ratio] 29.17 kg/m2 Adriana Carroll Other [facility] Other 06-18-2021 11:00-0400 Body weight 80.74 kg Adriana Carroll Other [facility] Other 06-18-2021 11:00-0400 Diastolic blood pressure 88 mm[Hg] Adriana Verotingiselle Other [facility] Other 06-18-2021 11:00-0400 Respiratory rate 18 /min Adriana Carroll Other [facility] Other 06-18-2021 11:00-0400 SaO2% (BldA) [Mass fraction] 99 % Adriana Carroll Other [facility] Other 06-18-2021 11:00-0400 Systolic blood pressure 130 mm[Hg] Adriana Carroll Other [facility] Other Encounters Encounter Date Encounter Type Care Provider Facility Start: 09-14-2023 End: 09-14-2023 ambulatory [facility] Start: 08-13-2023 End: 08-13-2023 ambulatory Adriana Carroll Other [facility] Other Start: 08-13-2023 Telephone encounter Adriana Frias her [facility] Start: 12-03-2022 End: 12-04-[address] ADRIANO SERRA . Facility: Start: 12-30-2021 End: 12-30-2021 ambulatory Donya Brown Other [facility] Other Start: 12-30-2021 Office outpatient vi sit 15 minutes Donya Brown [facility] Start: 12-30-2021 Telephone encounter Adriana Frias her [facility] Start: 11-22-2021 End: 11-22-2021 ambulatory Adriana Carroll Other [facility] Other Start: 11-22-2021 Telephone encounter Adriana Frias her [facility] Start: 11-19-2021 End: 11-19-2021 ambulatory Adriana Valenzuelaailyn Other [facility] Other Start: 11-19-2021 Encounter for other preprocedural examination Adriana Carly [facility] Start: 11-19-2021 Telephone encounter Adriana Valenzuelanikki her [facility] Start: 11-18-2021 End: 11-18-2021 ambulatory Adriana Carly Other [facility] Other Start: 11-18-2021 Encounter for other preprocedural examination Adriana Carly [facility] Start: 11-18-2021 Telephone encounter Adriana Valenzuelanikki her [facility] Start: 10-24-2021 End: 10-24-2021 ambulatory Adriana Carly Other [facility] Other Start: 10-24-2021 Telephone encounter Adriana Valenzuelanatyhipolito her [facility] Start: 10-15-2021 End: 10-15-2021 ambulatory Adriana Carly Other [facility] Other Start: 10-15-2021 Encounter for other preprocedural examination Adriana Carly [facility] Start: 10-15-2021 Office outpatient vi sit 15 minutes Adriana Dustingiselle [facility] Start: 07-10-2021 End: 07-10-2021 ambulatory Adriana Valenzuelajenellegiselle Other [facility] Other Start: 07-10-2021 Telephone encounter Adriana Valenzuelanikki her [facility] Start: 07-01-2021 Telephone encounter Adriana Valenzuelanikki her [facility] Start: 06-18-2021 Encounter for other preprocedural examination Adriana Carly [facility] Start: 10-12-2021 Office outpatient vi sit 25 minutes Adriana Carroll [facility] [place] Immunizations Immunization Date Immunization Notes Care Provider Rosy weiner 01-06-2019 influenza, seasonal, injectable Patient Objection Adriana Carroll Other [facility] Other NEGATED: Highlighted row has not occurred! 9 influenza, seasonal, injectable Patient Objection Adriana Carroll Other [facility] Other Payers Date Payer Category Payer Medicaid [id number] 1970 Unknown [id number] 2.16.84 [id number] 1970 Unknown [id number] 2.16.84 [id number] Unknown [id number] 2.1 [id number] Social History Date Type Detail Facility Sex Assigned At [facility] Other Clinical Notes 06-18-2021 to 12-30-2021 Note Date & Type Note Facility 12-30-2021 Evaluation note Encounter Date Diagnosis Assessment Notes Dec, Seasonal allergic rhinitis, unspecified trigger (ICD-10 - J30.2) Take medication as directed. Use saline nasal spray may help with symptom relief. Follow up with primary care provider if symptoms persist as a therapy plan may need to be made. Dec, Acute bacterial conjunctivitis of both eyes (ICD-10 - H10.33) Use medication as directed. Recommend discarding makeup if applicable. Need to wash linens on bed. [facility] Other 03-15-2022 Evaluation note* Encounter Date Diagnosis Assessment Notes Treatment Notes Treatment Clinical Notes Nov, Right bundle branch block (RBBB) (ICD-10 - I45.10) Nov, Left bundle branch block (LBBB) (ICD-10 - I44.7) Nov, Pre-op testing (ICD-10 - Z01.818) [facility] Other 03-14-2022 Evaluation note* Encounter Date Diagnosis Assessment Notes Treatment Notes Treatment Clinical Notes Nov, Abnormal EKG (ICD-10 - R94.31) Nov, Right bundle branch block (RBBB) (ICD-10 - I45.10) Nov, Left bundle branch block (LBBB) (ICD-10 - I44.7) Nov, Pre-op testing (ICD-10 - Z01.818) [facility] Other 02-08-2022 Evaluation note* Encounter Date Diagnosis Assessment Notes Treatment Notes Treatment Clinical Notes Oct, Pre-op evaluation (ICD-10 - Z01.818) Patient presents for preop evaluation for upcoming hysterectomy. patient will be completing pre-operative testing early next week and will have this information sent to our office. Called pt for an update and right now she is waiting to get iron infusions covered as her iron levels were extremely low, and then after she receives the infusion will have labs draw a week later. Is unsure now when they are planning her hysterectomy. Pt will need to be reassessed prior to the surgery. [facility] Other 01-06-2022 NotePatient Education Materials Follows: Dental Abscess A dental abscess is an area of pus in or around a tooth. It comes from an infection. It can cause pain and other symptoms. Treatment will help with symptoms and prevent the infection from spreading. Follow these instructions at home: Medicines ? Take [id number] and prescription medicines only as told by your dentist. ? If you were prescribed an antibiotic medicine, take it as told by your dentist. Do not stop taking it even if you start to feel better. ? If you were prescribed a gel that has numbing medicine in it, use it exactly as told. ? Do not drive or use heavy machinery (like a supply chain generalist) while taking prescription pain medicine. General instructions ? Rinse out your mouth often with salt water. ? To make salt water, dissolve ??1 tsp of salt in 1 cup of warm water. ? Eat a soft diet while your mouth is healing. ? Drink enough fluid to keep your urine pale yellow. ? Do not apply heat to the outside of your mouth. ? Do not use any products that contain nicotine or tobacco. These include cigarettes and e-cigarettes. If you need help quitting, ask your doctor. ? Keep all follow-up visits as told by your dentist. This is important. Prevent an abscess ? [place] your teeth every morning and every night. Use fluoride toothpaste. ? Floss your teeth each day. ? Get dental cleanings as often as told by your dentist. ? Think about getting dental sealant put on teeth that have deep holes (decay). ? Drink water that has fluoride in it. ? Most tap water has fluoride. ? Check the label on bottled water to see if it has fluoride in it. ? Drink water instead of sugary drinks. ? Eat healthy meals and snacks. ? Wear a mouth guard or face shield when you play sports. Contact a doctor if: ? Your pain is worse, and medicine does not help. Get help right away if: ? You have a fever or chills. ? Your symptoms suddenly get worse. ? You have a very bad headache. ? You have problems breathing or swallowing. ? You have trouble opening your mouth. ? You have swelling in your neck or close to your eye. Summary ? A dental abscess is an area of pus in or around a tooth. It is caused by an infection. ? Treatment will help with symptoms and prevent the infection from spreading. ? Take [id number] and prescription medicines only as told by your dentist. ? To prevent an abscess, take good care of your teeth. [place] your teeth every morning and night. Use floss every day. ? Get dental cleanings as often as told by your dentist. This information is not intended to replace advice given to you by your health care provider. Make sure you discuss any questions you have with your health care provider. Document Revised: 12/14/2019 Document Reviewed: 04/26/2018 [employer] Patient Education ? 2019 [employer].[facility] [id number] Note Patient Education Materials Follows: Dental Abscess A dental abscess is a collection of pus in or around a tooth that results from an infection. An abscess can cause pain in the affected area as well as other symptoms. Treatment is important to help with symptoms and to prevent the infection from spreading. What are the causes? This condition is caused by a bacterial infection around the root of the tooth that involves the inner part of the tooth (pulp). It may result from: ? Severe tooth decay. ? Trauma to the tooth, such as a broken or chipped tooth, that allows bacteria to enter into the pulp. ? Severe gum disease around a tooth. What increases the risk? This condition is more likely to develop in males. It is also more likely to develop in people who: ? Have dental decay (cavities). ? Eat sugary snacks between meals. ? Use tobacco products. ? Have diabetes. ? Have a weakened disease-fighting system (immune system). ? Do not brush and care for their teeth regularly. What are the signs or symptoms? Symptoms of this condition include: ? Severe pain in and around the infected tooth. ? Swelling and redness around the infected tooth, in the mouth, or in the face. ? Tenderness. ? Pus drainage. ? Bad breath. ? Bitter taste in the mouth. ? Difficulty swallowing. ? Difficulty opening the mouth. ? Nausea. ? Vomiting. ? Chills. ? Swollen neck glands. ? Fever. How is this diagnosed? This condition is diagnosed based on: ? Your symptoms and your medical and dental history. ? An examination of the infected tooth. During the exam, your dentist may tap on the infected tooth. You may also have X-rays of the affected area. How is this treated? This condition is treated by getting rid of the infection. This may be done with: ? Incision and drainage. This procedure is done by making an incision in the abscess to drain out the pus. Removing pus is the first priority in treating an abscess. ? Antibiotic medicines. These may be used in certain situations. ? Antibacterial mouth rinse. ? A root canal. This may be performed to save the tooth. Your dentist accesses the visible part of your tooth (crown) with a drill and removes any damaged pulp. Then the space is filled and sealed off. ? Tooth extraction. The tooth is pulled out if it cannot be saved by other treatment. You may also receive treatment for pain, such as: ? Acetaminophen or NSAIDs. ? Gels that contain a numbing medicine. ? An injection to block the pain near your nerve. Follow these instructions at home: Medicines ? Take ijuk-vts-mwidclw and prescription medicines only as told by your dentist. ? If you were prescribed an antibiotic, take it as told by your dentist. Do not stop taking the antibiotic even if you start to feel better. ? If you were prescribed a gel that contains a numbing medicine, use it exactly as told in the directions. Do not use these gels for children who are younger than 2 years of age. ? Do not drive or use heavy machinery while taking prescription pain medicine. General instructions ? Rinse out your mouth often with salt water to relieve pain or swelling. To make a salt-water mixture, completely dissolve ??1 tsp of salt in 1 cup of warm water. ? Eat a soft diet while your abscess is healing. ? Drink enough fluid to keep your urine pale yellow. ? Do not apply heat to the outside of your mouth. ? Do not use any products that contain nicotine or tobacco, such as cigarettes and e-cigarettes. Ifyou need help quitting, ask your health care provider. ? Keep all follow-up visits as told by your dentist. This is important. How is this prevented? ? [place] your teeth every morning and night with fluoride toothpaste. Floss one time each day. ? Get regularly scheduled dental cleanings. ? Consider having a dental sealant applied on teeth that have deep holes (caries). ? Drink fluoridated water regularly. This includes most tap water. Check the label on bottled waterto see if it contains fluoride. ? Drink water instead of sugary drinks. ? Eat healthy meals and snacks. ? Wear a mouth guard or face shield to protect your teeth while playing sports. Contact a health care provider if: ? Your pain is worse and is not helped by medicine. Get help right away if: ? You have a fever or chills. ? Your symptoms suddenly get worse. ? You have a very bad headache. ? You have problems breathing or swallowing. ? You have trouble opening your mouth. ? You have swelling in your neck or around your eye. Summary ? A dental abscess is a collection of pus in or around a tooth that results from an infection. ? A dental abscess may result from severe tooth decay, trauma to the tooth, or severe gum disease around a tooth. ? Symptoms include severe pain, swelling, redness, and drainage of pus in and around the infected tooth. ? The first priority in treating a dental abscess is to drain (more content not included)...[facility] [id number] Evaluation note* Encounter Date Diagnosis Assessment Notes Treatment Notes Treatment Clinical Notes Jun, Anemia due to acute blood loss (ICD-10 - D62) The patient was seen today for ER/Urgent Care follow-up. All available records were reviewed and discussed with the patient. All new medications prescribed were reviewed. Any additional changes are noted above. Discussed with patient need to re-evaluate hemoglobin levels due to recent blood transfusion. Orders placed. Will call with results and further recommendations based upon results. Pt verbalizes understanding and agrees with plan of care. Jun, Preop testing (ICD-10 - Z01.818) Preoperative work-up has been discussed, which include blood tests, chest x-ray, EKG, Arrangements will be made for patient have these completed. Plan to see patient back a couple of weeks before surgery to evaluate the results of the work up and perform the history and physical with surgical clearance. 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 Worley for her thyroid. She was currently taking Levothyroxine, but has completely stopped this. Her most recent TSH level was 75, she restarted her Levothyroxine. Will repeat to keep a close eye on the levels. Jun, Screening for lipid disorders (ICD-10 - Z13.220) Jun, Vitamin D deficiency (ICD-10 - E55.9) Jun, Current smoker (ICD-10 - F17.200) We discussed possible complications of smoking including risk of heart disease, stroke, lung disease, and increase risk of cancer. Your goal is to quit smoking. The availability, risks, and benefits of medication used to treat nicotine addiction as releveant to you have been discussed. We are working together to achieve these goals with the following plan; barriers to these goals have been discussed. You have been given relevant education handouts and a summary of your care plan. Your next follow-up visit for this problem is six months, we will continue to ask progress for quitting and willingness to quit at each appointment. [employer] Other Evaluation noteNo [employer] Other History general Narrative - Reported* Type Description Date Medical History Hypothyroidism Medical History vitamin D deficiency Surgical History 2- sections Surgical History Rt carpal tunnel release Surgical History Rt thumb trigger release Surgical History Rt shoulder surgery Surgical History cholecystectomy Hospitalization History see above [employer] Other History general Narrative - Reported* Type Description Date Medical History Hypothyroidism Medical History vitamin D deficiency Medical History Anemia Surgical History 2- sections Surgical History Rt carpal tunnel release Surgical History Rt thumb trigger release Surgical History Rt shoulder surgery Surgical History cholecystectomy Hospitalization History see above [facility] [employer] Other Hisgjrs general Narrative - Reported* Type Description Date Medical History Hypothyroidism Medical History vitamin D deficiency Medical History Anemia Surgical History 2- sections Surgical History Rt carpal tunnel release Surgical History Rt thumb trigger release Surgical History Rt shoulder surgery Surgical History cholecystectomy Surgical History hysterectomy Hospitalization History see above [facility] [employer] Other Summary Purpose Family History No Family History Records FoundNo Family History Records FoundNo Family History Records FoundNo Family History Records Found Advance Directives No Advanced Directives Records FoundNo Advanced Directives Records FoundNo Advanced Directives Records FoundNo Advanced Directives Records Found Additional Source Comments INFORMATION SOURCE (unrecogn ized section and content) DATE CREATED AUTHOR 10/03/2021 [facility] DATE CREATED AUTHOR AUTHOR'S ORGANIZ ATION 11/21/2021 [facility] DATE CREATED AUTHOR AUTHOR'S ORGANIZ ATION 12/08/2022 [facility] DATE CREATED AUTHOR AUTHOR'S ORGANIZ ATION 09/19/2023 [facility] REASON FOR VISIT (unrecogniz ed section and content) EstablishtestingresultsNo In formationStress test resultsSX CLEARANCENo InformationNo InformationNo InformationRED DODGE, COUGH, CONGESTION, EYE IRRITATIONNo InformationPrescriptions? FOR RECORDS PERTAINING TO PATIENTS WHO ARE OR HAVE BEEN ENROLLED IN A CHEMICAL DEPENDENCY/SUBSTANCEABUSE PROGRAM, SOME INFORMATION MAY BE OMITTED. This clinical summary was aggregated from multiple sources. Caution should be exercised in using it in the provision of clinical care. This summary normalizes information from multiple sources, and as a consequence, information in this document may materially change the coding, format and clinical context of patient data. In addition, data may be omitted in some cases. CLINICAL DECISIONS SHOULD BE BASED ON THE PRIMARY CLINICAL RECORDS. [employer] provides no warranty or guarantee of the accuracy or completeness of information in this document.
[2023-10-29 18:43] LABS: Bilirubin Urine NEGATIVE (NEGATIVE); Blood Urine LARGE (NEGATIVE); Clarity Urine CLEAR (CLEAR); Color Urine LT. YELLOW (YELLOW); Glucose Urine UA NEGATIVE (NEGATIVE); Ketones Urine NEGATIVE (NEGATIVE); Leukocyte Esterase Urine MODERATE (NEGATIVE); Nitrite Urine POSITIVE (NEGATIVE); Protein Urine NEGATIVE (NEG/TRACE); Specific Gravity Urine <=1.005 (1.005-1.025); Urobilinogen Urine 0.2 EU/dL (0.2-1.0)
[2023-10-29 18:53] LABS: Bacteria Urine MODERATE #/HPF (NONE SEEN); Cast Seen? NONE SEEN #/LPF (NONE SEEN); Crystals Seen? None Seen #/HPF (None Seen); Mucus Urine NONE SEEN (NONE SEEN); Squamous Epithelial Cell Urine FEW #/LPF (NONE/RARE); WBC Urine 20-50 #/HPF (NONE SEEN)
[2023-10-29] MEDS: CEPHALEXIN 500 MG CAPSULE PO (19:00)
== END 2023-10-29 19:06 | disposition home or self-care (01) ==
PROVIDERS: Emergency Provider Emergency Medicine; PCP Nurse Practitioner Family
DX: N39.0 Urinary tract infection, site not specified (principal); Z79.899 Other long term (current) drug therapy
CPT/HCPCS: 81001; 99283

== ENCOUNTER 2023-12-02 16:46 | Emergency (ER) | payer MEDICAID, SELFPAY ==
[2023-12-02 16:56] VITALS: BP 169/94; PULSE 78; RESP 20; TEMP 36.6; O2SAT 98; BMI 29.2
[2023-12-02 17:26] LABS: Bilirubin Urine NEGATIVE (NEGATIVE); Blood Urine NEGATIVE (NEGATIVE); Clarity Urine CLEAR (CLEAR); Color Urine LT. YELLOW (YELLOW); Glucose Urine UA NEGATIVE (NEGATIVE); Ketones Urine NEGATIVE (NEGATIVE); Leukocyte Esterase Urine NEGATIVE (NEGATIVE); Nitrite Urine NEGATIVE (NEGATIVE); Protein Urine NEGATIVE (NEG/TRACE); Urobilinogen Urine 0.2 EU/dL (0.2-1.0); pH Urine 6.5 (5.0-9.0)
[2023-12-02 17:28] LABS: Urine Microscopic Indicated NO
--- NOTE | 2023-12-02 18:11 | ED.FEMALEGU1 ---
HPI - Female Genitourinary General Chief complaint: Urogenital-Female Stated complaint: UTI Time Seen by Provider: 12/02/23 17:53 Source: patient Mode of arrival: walk-in Limitations: no limitations History of Present Illness HPI Narrative: This patient is here for she suspected was a urinary infection. She was here recently and seen in this ER for the same. She says her symptoms are much improved but she still has some discomfort smell to her urine. She states that several years ago she had a total hysterectomy. She is sexually active with her . She has no previous history of STDs. She on her previous urine had white blood cells and bacteriuria and was placed on Keflex. I cannot find the results of the microbiology analysis and we will continue searching with our lab here. Today the patient has not had fever shakes or chills. Does not have any abdominal or back or flank pain. As a said she has some discomfort with urinating but it is nowhere near as bad and she also has an odor. She does not have any vaginal discharge. She has no cystocele. She has never been seen by a hotel receptionist for this problem and she has not seen a urology physician Related Data Home Medications ?Medication ?Instructions ?Recorded ?Confirmed buspirone 5 mg tablet 5 mg PO BID 10/29/23 10/29/23 dextroamphetamine-amphetamine 10 10 mg PO DAILY 10/29/23 10/29/23 mg tablet levothyroxine 125 mcg tablet 125 mcg PO DAILY 10/29/23 10/29/23 paroxetine HCl 30 mg tablet 30 mg PO DAILY 10/29/23 10/29/23 Previous Rx's ?Medication ?Instructions ?Recorded cephalexin 500 mg capsule 500 mg PO TID 7 days #21 caps 10/29/23 Allergies Allergy/AdvReac Type Severity Reaction Status Date / Time No Known Drug Allergies Allergy Verified 09/20/23 16:55 PFSH PFSH Social History Smoking status: Never smoker Exam Narrative Exam Narrative: The emergency room was extremely busy and a urinalysis has been obtained when she was in the lobby waiting. Here in emergency room she did does not appear uncomfortable she brought her daughter in for evaluation of a head cold. Here in ER she is pleasant cooperative appears in no distress. Her skin and integument are normal she is not clammy diaphoretic or pale. She does not have any back pain. Cognition and mentation are normal. Constitutional Vital Signs, click to edit/add: Last Vital Signs Temp 97.8 F 12/02/23 16:56 Pulse 78 12/02/23 16:56 Resp 20 12/02/23 16:56 BP 169/94 H 12/02/23 16:56 Pulse Ox 98 12/02/23 16:56 O2 Del Method Room Air 12/02/23 17:38 Course Vital Signs Vital signs: Vital Signs Temperature 97.8 F 12/02/23 16:56 Pulse Rate 78 12/02/23 16:56 Respiratory Rate 20 12/02/23 16:56 Blood Pressure 169/94 H 12/02/23 16:56 Pulse Oximetry 98 12/02/23 16:56 Oxygen Delivery Method Room Air 12/02/23 16:56 Temperature 97.8 F 12/02/23 16:56 Pulse Rate 78 12/02/23 16:56 Respiratory Rate 20 12/02/23 16:56 Blood Pressure 169/94 H 12/02/23 16:56 Pulse Oximetry 98 12/02/23 16:56 Oxygen Delivery Method Room Air 12/02/23 17:38 MDM - Female Genitourinary MDM Narrative Medical decision making narrative: A culture was not done from her previous visit to the ER here and she has recurring symptoms but to a much lesser extent. She has had a total hysterectomy and has symptoms of urethral irritation. I decided to start her on Zithromax. She is to take plenty of extra water. She will be placed on Pyridium. If symptoms do not improve she should follow-up with a urologist. She is in agreement with these treatment recommendations Lab Data Labs: Lab Results 12/02/23 Range/Units 17:04 Urine Color Lt. yellow (YELLOW) Urine Clarity Clear (CLEAR) Urine pH 6.5 (5.0-9.0) Ur Specific [place] 1.010 (1.005-1.025) Urine Protein Negative (NEG/TRACE) mg/dL Urine Glucose (UA) Negative (NEGATIVE) mg/dL Urine Ketones Negative (NEGATIVE) mg/dL Urine Occult Blood Negative (NEGATIVE) Urine Nitrite Negative (NEGATIVE) Urine Bilirubin Negative (NEGATIVE) Urine Urobilinogen 0.2 (0.2-1.0) EU/dL Ur Leukocyte Esterase Negative (NEGATIVE) Discharge Plan Discharge Stand Alone Forms: Portal Instructions Chief Complaint: Urogenital-Female Clinical Impression: Urethritis Patient Disposition: Home, Self-Care Time of Disposition Decision: 18:15 Prescriptions / Home Meds: No Action buspirone 5 mg tablet 5 mg PO BID levothyroxine 125 mcg tablet 125 mcg PO DAILY paroxetine HCl 30 mg tablet 30 mg PO DAILY dextroamphetamine-amphetamine 10 mg tablet 10 mg PO DAILY cephalexin 500 mg capsule 500 mg PO TID 7 Days Qty: 21 0RF Print Language: Spanish Additional Instructions: Start Zithromax, drink plenty fluids/use Pyridium/follow-up with urology if symptoms do not improve Referrals: SALAS VALDEZ [Primary Care Provider] - 1 week
== END 2023-12-02 18:41 | disposition home or self-care (01) ==
PROVIDERS: Emergency Provider Emergency Medicine Emergency Medical Services; PCP Nurse Practitioner Family
DX: N34.2 Other urethritis (principal); Z79.899 Other long term (current) drug therapy; Z79.890 Hormone replacement therapy; Z90.710 Acquired absence of both cervix and uterus
CPT/HCPCS: 81003; 99283